=== PATIENT | female | born 1975 | race Caucasian/White ===

== ENCOUNTER 2024-02-19 11:23 | Outpatient (AMB) | payer OTHER, SELFPAY ==
--- NOTE | 2024-02-19 11:46 | MHC.PC.OV ---
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 Intake Note: New patient visit Allergies metformin Allergy (Unknown, Verified 02/19/24 11:47) Hives Medication List - Last Reconciled 02/19/24 by Elba Reynoso PA-C levothyroxine 100 mcg PO DAILY norethindrone-e.estradiol-iron 1 mg-20 mcg (21)/75 mg (7) (05/18 (28)) 1 tab PO DAILY Tobacco use date assessed: 02/19/24 Dental Screening Dental Screen Date: 02/19/24 Did you have a dental visit in the last 12 months?: Yes Did you have a dental problem in the last 6 months where you did not have access to dental care?: No Was dental information given to patient?: Patient has dentist HPI 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 General: She has tried weight watchers, the [employer], [place], and atkins. She tried metformin (hives), Contrave (racing heart). She states that she went through an online prescriber from [employer]. She was able to lose 35 lbs and then gained back weight and then some . She has had a pharmacist helper in the past and found it somewhat helpful but knows what to do but states that her appetite is just always present. She does think it would be helpful to maybe see someone again in, with a better meal plan for her and her daughter. Metformin causes hives Endo: On levothyroxine 100 mcg. Last TSH was WNL. She states her last A1c was checked a couple years ago but denies any polyuria or polydipsia Psych: I did start on trazodone for insomnia couple years ago. It is effective when she uses as needed. Colonoscopy: Never had wound Pap: Up-to-date Mammo: Up-to-date, scheduled next week. [facility] Medical History (Updated 02/19/24 @ 12:56 by Elba Reynoso PA-C) Prediabetes Severe obesity Increased BMI Hypothyroid Asthma Anxiety disorder Allergic rhinitis Surgical History (Updated 02/19/24 @ 11:59 by Priya Robertson CMA) H/O wisdom tooth extraction Family History (Updated 02/19/24 @ 12:01 by Priya Robertson CMA) Father Alcoholism CAD (coronary artery disease) Congestive heart failure (CHF) Heart attack HTN (hypertension) Mother HTN (hypertension) Other Substance use Social History Housing: House Patient Tobacco Use Status: Former Tobacco user Years Smoked: 4 college years e-Cigarette/Vaping Use: Never Used Second Hand Smoke Exposure: No service: No Current occupational status: employed 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 1. Little interest or pleasure in doing things: not at all 2. Feeling down, depressed, or hopeless: not at all 3. Trouble falling or staying asleep, or sleeping too much: several days 4. Feeling tired or having little energy: several days 5. Poor appetite or overeating: several days 6. Feeling bad about yourself - or that you are a failure or have let yourself or your family down: not at all 7. Trouble concentrating on things, such as reading the newspaper or watching television: not at all 8. Moving or speaking so slowly that other people could have noticed. Or the opposite - being so fidgety or restless that you have been moving around a lot more than usual: not at all 9. Thoughts that you would be better off or of hurting yourself in some way: not at all Total score: 3 Source: Developed by Drs. Alvino Salter, Arelis Mckeon, Cruz Rader and colleagues, with an educational cordell from [employer]. Thrive Questionnaire Date Thrive assessed: 02/16/24 I am a: Patient What is your living situation today?: I have a steady place to live Within the past 12 months, did the food you bought not last and you didn't have the money to get more?: Never true Within the past 12 months, did you worry whether your food would run out before you got money to buy more?: Never true Do you have trouble paying for medicines?: No Do you have trouble getting transportation to medical appointments?: No Do you have trouble paying your heating and electricity bill?: No Do you have trouble taking care of your child, family member or friend?: No Do you have trouble with day-to-day activities such as bathing, preparing meals, shopping, managing finances, etc.?: No Are you currently unemployed and looking for a job?: No Are you interested in more education?: No Please select the resources that you would like help with: None Currently or been in a relationship where the following occur: No concerns reported THRIVE Score: 0 AUDIT C Alcohol Use Questionnaire (AUDIT-C) 1. How often do you have a drink containing alcohol?: 2-4 times a month 2. How many drinks containing alcohol do you have on a typical day when you are drinking?: 1 or 2 3. How often do you have six or more drinks on one occasion?: Never Total Score: 2 Score Reviewed/Action Taken: Yes ABIGAIL-7 AMB Questionnaire ABIGAIL-7 Feeling nervous, anxious, or on edge: 1 = Several days Not being able to stop or control worryin = Not at all Worrying too much about different things: 0 = Not at all Trouble relaxin = Several days Being so restless that it is hard to sit still: 0 = Not at all Feeling afraid as if something awful might happen: 0 = Not at all Source: Developed by Drs. Alvino Salter, Arelis Mckeon, Cruz Rader and colleagues, with an educational cordell from [employer]. ABIGAIL-7 Assessment Billing ABIGAIL-7 Assessment Tool: ABIGAIL-7 Assessment 27888 ACT Questionnaire In the past 4 weeks, how much of the time did your asthma keep you from getting as much done at work, school or at home?: Some of the time During the past 4 weeks, how often have you had shortness of breath?: 1-2 times a week During the past 4 weeks, how often did your asthma symptoms wake you up at night or earlier than usual in the morning?: Once or twice per week During the past 4 weeks, how often have you had to use your rescue inhaler or nebulizer medication?: 1-2 times a week How would you rate your asthma control during the past 4 weeks?: Well controlled Score: 17 Physical exam (Primary Care) Vital Signs: Last Vital Signs Temp 98.7 F 02/19/24 11:51 Pulse 95 02/19/24 11:51 Resp 16 02/19/24 11:51 BP 126/76 02/19/24 11:51 Pulse Ox 99 02/19/24 11:51 Oxygen Delivery Method Room Air 02/19/24 11:51 BMI result Body Mass Index 50.1 Tobacco/Smoking Status: Tobacco use Status Tobacco use date assessed 02/19/24 02/19/24 11:55 Patient Tobacco Use Status Former Tobacco user 02/19/24 11:55 e-Cigarette/Vaping Use Never Used 02/19/24 11:55 PHQ-9: PHQ-9 Score PHQ-9: Total score 3 02/19/24 11:55 Thrive Assessment: Date of Thrive Assessment Date Thrive assessed 02/16/24 02/19/24 11:55 Currently or been in a relationship where the following occur: No concerns reported Const Orientation/consciousness: patient oriented x3 HENMT Ears: hearing grossly normal bilaterally Neck Thyroid: Thyroid normal Lymphatic: no lymphadenopathy noted Resp Auscultation: clear to auscultation bilaterally Cardio Rate: regular rate Rhythm: regular rhythm Heart sounds: S1 normal heart sound present and S2 normal heart sound present GI Inspection: Yes normal to inspection Palpation (GI): Soft to palpation and Other GI palpation findings present (nontender, no cva tenderness) Auscultation: normoactive bowel sounds Rectal Exam - Female: deferred Skin General skin exam: no rashes or lesions noted Neuro General: patient oriented x3, gait normal and no focal motor deficits Coding Level of Care Code Est Pt Level 4 (34242) Complex EM visit Add On G2211 Diagnoses 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 Currently on levothyroxine 100 mcg. Feels better when her TSH is closer to 2. (2) Severe obesity: Code(s): E66.01 - Morbid (severe) obesity due to excess calories Category: Medical Plan: We will try Wegovy. We discussed risks and benefits and adverse effects of this medication including nausea, vomiting, increased risk of pancreatitis and thyroid malignancy. Patient is aware of the side effects. She is going to work on avoiding processed food and increase exercise. I have referred her to pharmacist helper. (3) Prediabetes: Code(s): R73.03 - Prediabetes Category: Medical Plan: A1c ordered today. We will follow up pending test results. Orders: Orders Comprehensive [place]. Panel Fast Today E03.9 - Hypothyroidism, unspecified, E66.01 - Morbid (severe) obesity due to excess calories, R73.03 - Prediabetes Complete Blood Count Auto Diff Today E03.9 - Hypothyroidism, unspecified, E66.01 - Morbid (severe) obesity due to excess calories, R73.03 - Prediabetes Hemoglobin A1c Today E03.9 - Hypothyroidism, unspecified, E66.01 - Morbid (severe) obesity due to excess calories, R73.03 - Prediabetes TSH reflex Free T4 Today E03.9 - Hypothyroidism, unspecified, E66.01 - Morbid (severe) obesity due to excess calories, R73.03 - Prediabetes Vitamin B12 and Folate Today E03.9 - Hypothyroidism, unspecified, E66.01 - Morbid (severe) obesity due to excess calories, R73.03 - Prediabetes Magnesium Today E03.9 - Hypothyroidism, unspecified, E66.01 - Morbid (severe) obesity due to excess calories, R73.03 - Prediabetes Lipid Panel Today E03.9 - Hypothyroidism, unspecified, E66.01 - Morbid (severe) obesity due to excess calories, R73.03 - Prediabetes Referrals Cash Specialist Nutrition Referral E66.01 - Morbid (severe) obesity due to excess calories, R73.03 - Prediabetes Open Access Screening Colonoscopy Referral Z12.11 - Encounter for screening for malignant neoplasm of colon Medications: New semaglutide (weight loss) (Wegovy) administer weeks 1 through 4 of therapy 0.25 mg (0.5 mL) subcut QWEEK 2 mL 1RF trazodone 50 mg PO BEDTIME PRN 90 tabs 3RF sleep albuterol sulfate 90 mcg/actuation 2 puffs inhalation Q6H PRN 8.5 grams 0RF shortness of breath or wheezing
[2024-02-19 11:51] VITALS: BP 126/76; PULSE 95; RESP 16; TEMP 37.1; O2SAT 99; BMI 50.1
== END 2024-02-19 12:44 | disposition home or self-care (01) ==
PROVIDERS: PCP Physician Assistant; Visit Provider Physician Assistant
DX: E06.3 Autoimmune thyroiditis (principal); E66.01 Morbid (severe) obesity due to excess calories; Z68.43 Body mass index [BMI] 50.0-59.9, adult; R73.03 Prediabetes

== ENCOUNTER → 2024-02-19 11:23 | Outpatient (BNVA) | payer OTHER, SELFPAY | PROVIDERS: PCP Physician Assistant; Visit Provider Physician Assistant | DX: E03.9 Hypothyroidism, unspecified (principal); E66.01 Morbid (severe) obesity due to excess calories; R73.03 Prediabetes; Z79.899 Other long term (current) drug therapy | CPT/HCPCS: 96127; 96160 ==

== ENCOUNTER 2024-02-20 06:46 | Outpatient (REF) | payer OTHER, SELFPAY ==
[2024-02-20 07:02] LABS: MANUAL DIFF FLAG NO
[2024-02-20 07:52] LABS: Basophils Percent Auto 0.4 % (0-2); Eosinophils Absolute Auto 0.2 X10*3/uL (0.0-0.4); Hematocrit 40.9 % (37.0-47.0); Hemoglobin 13.1 g/dl (12.0-16.0); Imm Gran Abs Auto 0.09 X10*3/uL (0.00-0.03); Imm Gran Pct Auto 0.9 % (0.0-0.4); Lymphocytes Absolute Auto 2.8 X10*3/uL (1.2-4.9); Lymphocytes Percent Auto 28.4 % (20-40); Mean Corpuscular Hemoglobin 27.5 pg (27.0-33.0); Mean Corpuscular Volume 85.7 fL (80.0-98.0); Mean Platelet Volume 9.4 fL (9.4-12.3); Monocytes Absolute Auto 0.5 X10*3/uL (0.1-1.2); Monocytes Percent Auto 5.4 % (2-11); Neutrophils Absolute Auto 6.2 x10*3/uL (2.0-8.3); Neutrophils Percent Auto 62.9 % (45-73); Platelet Count 226 X10*3/uL (160-400); Red Blood Count 4.77 X10*6/uL (4.20-5.50); Red Cell Distribution Width 13.9 % (11.0-16.0); White Blood Count 9.8 X10*3/uL (4.8-10.8)
[2024-02-20 08:04] LABS: Estimated Average Glucose 120 mg/dL; Hemoglobin A1C 134.8526 umol/L; Hemoglobin A1c % 5.8 % (<6.0); Total Hemoglobin (HGBA1C) 3397.4304 umol/L
[2024-02-20 08:24] LABS: Alanine Aminotransferase 46 U/L (0-31); Albumin Level 3.9 g/dL (3.5-5.0); Alkaline Phosphatase 103 U/L (39-117); Anion Gap 13 (12-20); Aspartate Amino Transferase 31 U/L (5-31); Bilirubin Total 0.4 mg/dL (0.0-1.0); Blood Urea Nitrogen 12 mg/dL (9-16); Calcium 9.3 mg/dL (8.4-10.2); Carbon Dioxide 25 mmol/L (22-29); Chloride 108 mmol/L (96-108); Cholesterol 178 mg/dL (<200); Estimated Glomerular Filt Rate > 60; Glucose Fasting 118 mg/dL (60-99); HDL Cholesterol 62 mg/dL (>40); LDL Cholesterol Calculated 97 mg/dL (<100); Magnesium 2.2 mg/dL (1.6-2.6); Potassium 4.5 mmol/L (3.3-5.1); Sodium 141 mmol/L (135-145); Total Protein 6.8 g/dL (6.5-8.0); Triglycerides 95 mg/dL (<150)
[2024-02-20 08:38] LABS: TSH reflex Free T4 5.95 uIU/mL (0.32-4.0)
[2024-02-20 08:52] LABS: Folate 10.9 ng/mL (> or = 4.0); Vitamin B12 462 pg/mL (200-900)
== END 2024-02-20 06:47 | disposition home or self-care (01) ==
LOC: HO.LAB 06:46
PROVIDERS: PCP Internal Medicine; Visit Provider Physician Assistant
DX: R73.03 Prediabetes (principal); E66.01 Morbid (severe) obesity due to excess calories; E03.9 Hypothyroidism, unspecified
CPT/HCPCS: 36415; 80053; 80061; 82607; 82746; 83036; 83735; 84439; 84443; 85025

== ENCOUNTER 2024-04-02 08:04 | Outpatient (AMB) | payer OTHER, SELFPAY ==
--- NOTE | 2024-04-02 08:28 | A.OFFPC_ITS ---
Vital Signs 04/02/24 08:29 Height 5 ft 3.78 in Weight 278 lb BMI 48.0 BP 126/80 Blood Pressure Location Lt brachial Position Sitting Pulse 110 H Pulse Source Pulse Oximeter Pulse Oximetry (%) 99 Oxygen Delivery Method Room Air Intake Visit Reasons: medicatin weight follow up Intake Note: Medication follow up Negative Cutter Required: No Allergies metformin Allergy (Unknown, Verified 04/02/24 08:28) Hives Medication List - Last Reconciled 04/02/24 by Elba Reynoso PA-C albuterol sulfate 90 mcg/actuation 2 puffs inhalation Q6H PRN levothyroxine 112 mcg PO DAILY norethindrone-e.estradiol-iron 1 mg-20 mcg ()/75 mg (7) (05/18 (28)) 1 tab PO DAILY trazodone 50 mg PO BEDTIME PRN Tobacco use date assessed: 02/19/24 Dental Screening Dental Screen Date: 02/19/24 HPI medicatin weight follow up HPI Details Patient is a 48-year-old female with a significant past medical history of prediabetes, dyslipidemia, PCOS, hypothyroidism, insomnia, and obesity pre senting today for a follow up. General: She has tried weight watchers, the [employer], [employer], and atkins. She tried metformin (hives), Contrave (racing heart). She states that she went through an online prescriber from [employer]. She was able to lose 35 lbs and then gained back weight and then some . She has had a silver lap machine tender in the past and found it somewhat helpful but knows what to do but states that her appetite is just always present. She is currently following with [employer] as her insurance recommended. She is down 12 lbs. She wanted to try wegovy but not covered until she trialed this. Metformin causes hives Endo: On levothyroxine 112 mcg. Last TSH was elevated. Due to recheck. Psych: I did start on trazodone for insomnia couple years ago. It is effective when she uses as needed. Colonoscopy: was referred- has not heard from dept. Pap: Up-to-date Mammo: Up-to-date [facility] Medical History (Updated 02/19/24 @ 12:56 by Elba Reynoso PA-C) Prediabetes Severe obesity Increased BMI Hypothyroid Asthma Anxiety disorder Allergic rhinitis Surgical History H/O wisdom tooth extraction Family History Father Alcoholism CAD (coronary artery disease) Congestive heart failure (CHF) Heart attack HTN (hypertension) Mother HTN (hypertension) Other Substance use Social History Housing: House Patient Tobacco Use Status: Former Tobacco user Years Smoked: 4 college years e-Cigarette/Vaping Use: Never Used Second Hand Smoke Exposure: No service: No Current occupational status: employed 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 Current occupational exposures/hazards: No Cognitive needs: No Hearing needs: No Vision needs: No Questionnaire Thrive Questionnaire Date Thrive assessed: 02/16/24 I am a: Patient What is your living situation today?: I have a steady place to live Within the past 12 months, did the food you bought not last and you didn't have the money to get more?: Never true Within the past 12 months, did you worry whether your food would run out before you got money to buy more?: Never true Do you have trouble paying for medicines?: No Do you have trouble getting transportation to medical appointments?: No Do you have trouble paying your heating and electricity bill?: No Do you have trouble taking care of your child, family member or friend?: No Do you have trouble with day-to-day activities such as bathing, preparing meals, shopping, managing finances, etc.?: No Are you currently unemployed and looking for a job?: No Are you interested in more education?: No Please select the resources that you would like help with: None Currently or been in a relationship where the following occur: No concerns reported THRIVE Score: 0 ABIGAIL-7 AMB Questionnaire ABIGAIL-7 Becoming easily annoyed or irritable: 0 = Not at all Source: Developed by Drs. Alvino Salter, Arelis Mckeon, Cruz Rader and colleagues, with an educational cordell from [employer]. Physical exam (Primary Care) Vital Signs: Last Vital Signs Pulse 110 H 04/02/24 08:29 BP 126/80 04/02/24 08:29 Pulse Ox 99 04/02/24 08:29 Oxygen Delivery Method Room Air 04/02/24 08:29 BMI result Body Mass Index 48.0 Tobacco/Smoking Status: Tobacco use Status Tobacco use date assessed 02/19/24 04/02/24 08:31 Patient Tobacco Use Status Former Tobacco user 04/02/24 08:31 e-Cigarette/Vaping Use Never Used 04/02/24 08:31 Thrive Assessment: Date of Thrive Assessment Date Thrive assessed 02/16/24 04/02/24 08:31 Currently or been in a relationship where the following occur: No concerns reported Const Orientation/consciousness: patient oriented x3 HENMT Ears: hearing grossly normal bilaterally Neck Thyroid: Thyroid normal Lymphatic: no lymphadenopathy noted Resp Auscultation: clear to auscultation bilaterally Cardio Rate: regular rate Rhythm: regular rhythm Heart sounds: S1 normal heart sound present and S2 normal heart sound present GI Inspection: Yes normal to inspection Palpation (GI): Soft to palpation and Other GI palpation findings present (nontender, no cva tenderness) Auscultation: normoactive bowel sounds Rectal Exam - Female: deferred Skin General skin exam: no rashes or lesions noted Neuro General: patient oriented x3, gait normal and no focal motor deficits Coding Level of Care Code Est Pt Level 4 (97730) Complex EM visit Add On G2211 Diagnoses 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 We will follow up pending test results (2) Prediabetes: Code(s): R73.03 - Prediabetes Category: Medical Plan: We will check an A1c given her recent weight loss. She is following a low carb diet and monitoring her blood sugars closely. (3) Severe obesity: Code(s): E66.01 - Morbid (severe) obesity due to excess calories Category: Medical Plan: Congratulated her on her weight loss. She will let me know if there is any issues with it. Orders: Orders Comprehensive [place]. Panel Fast Today E06.3 - Autoimmune thyroiditis, E66.01 - Morbid (severe) obesity due to excess calories, R73.03 - Prediabetes Hemoglobin A1c Today E06.3 - Autoimmune thyroiditis, E66.01 - Morbid (severe) obesity due to excess calories, R73.03 - Prediabetes
[2024-04-02 08:29] VITALS: BP 126/80; PULSE 110; O2SAT 99; BMI 48.0
== END 2024-04-02 09:03 | disposition home or self-care (01) ==
PROVIDERS: PCP Physician Assistant; Visit Provider Physician Assistant
DX: E06.3 Autoimmune thyroiditis (principal); R73.03 Prediabetes; E66.01 Morbid (severe) obesity due to excess calories; Z68.42 Body mass index [BMI] 45.0-49.9, adult

== ENCOUNTER 2024-04-02 09:14 | Outpatient (REF) | payer OTHER, SELFPAY ==
[2024-04-02 11:46] LABS: Estimated Average Glucose 120 mg/dL; Hemoglobin A1C 134.7516 umol/L; Hemoglobin A1c % 5.8 % (<6.0); Total Hemoglobin (HGBA1C) 3420.5028 umol/L
[2024-04-02 11:56] LABS: Alanine Aminotransferase 22 U/L (0-31); Albumin Level 4.2 g/dL (3.5-5.0); Alkaline Phosphatase 67 U/L (39-117); Anion Gap 14 (12-20); Aspartate Amino Transferase 23 U/L (5-31); Bilirubin Total 0.4 mg/dL (0.0-1.0); Blood Urea Nitrogen 17 mg/dL (9-16); Calcium 9.6 mg/dL (8.4-10.2); Carbon Dioxide 24 mmol/L (22-29); Chloride 106 mmol/L (96-108); Estimated Glomerular Filt Rate > 60; Glucose Fasting 100 mg/dL (60-99); Potassium 4.4 mmol/L (3.3-5.1); Sodium 140 mmol/L (135-145); Total Protein 7.2 g/dL (6.5-8.0)
== END 2024-04-02 09:15 | disposition home or self-care (01) ==
LOC: HO.WFDLDS 09:14
PROVIDERS: Visit Provider Physician Assistant
DX: E06.3 Autoimmune thyroiditis (principal); R73.03 Prediabetes; E66.01 Morbid (severe) obesity due to excess calories
CPT/HCPCS: 36415; 80053; 83036

== ENCOUNTER 2024-05-21 11:28 | Outpatient (REF) | payer OTHER, SELFPAY ==
[2024-05-21 13:03] LABS: TSH reflex Free T4 2.51 uIU/mL (0.32-4.0)
== END 2024-05-21 11:29 | disposition home or self-care (01) ==
LOC: HO.LAB 11:28
PROVIDERS: PCP Physician Assistant; Visit Provider Physician Assistant
DX: E06.3 Autoimmune thyroiditis (principal)
CPT/HCPCS: 36415; 84443

== ENCOUNTER 2024-10-07 08:16 | Outpatient (AMB) | payer OTHER, SELFPAY ==
--- NOTE | 2024-10-07 08:20 | MHC.PC.OV ---
Vital Signs 10/07/24 08:23 Height 5 ft 3.78 in Weight 234 lb 4 oz BMI 40.5 BP 120/72 Blood Pressure Location Lt brachial Position Sitting Respiration 14 Pulse 86 Pulse Source Pulse Oximeter Temp 98.9 F Temp Source Oral Pulse Oximetry (%) 99 Oxygen Delivery Method Room Air Intake Visit Reasons: thyroid, weight Intake Note: Follow up Milk Condenser Required: No Allergies metformin Allergy (Unknown, Verified 10/07/24 08:22) Hives Medication List - Last Reconciled 10/07/24 by Elba Reynoso PA-C albuterol sulfate 90 mcg/actuation 2 puffs inhalation Q6H PRN levothyroxine 112 mcg PO DAILY norethindrone-e.estradiol-iron 1 mg-20 mcg ()/75 mg (7) (05/18 (28)) 1 tab PO DAILY trazodone 50 mg PO BEDTIME PRN Tobacco use date assessed: 10/07/24 Dental Screening Dental Screen Date: 02/19/24 Did you have a dental visit in the last 12 months?: Yes Did you have a dental problem in the last 6 months where you did not have access to dental care?: No Was dental information given to patient?: Patient has dentist HPI thyroid, weight HPI Details Patient is a 49-year-old female with a significant past medical history of prediabetes, dyslipidemia, PCOS, hypothyroidism, insomnia, and obesity presenting today for a follow up. General: She has tried weight watchers, the [employer], [employer] [place], and atkins. She tried metformin (hives), Contrave (racing heart). She states that she went through an online prescriber from [employer]. She was able to lose 35 lbs and then gained back weight and then some . She has had a aircraft cabin cleaner in the past and found it somewhat helpful but knows what to do but states that her appetite is just always present. She is currently following with [facility] as her insurance recommended. She is down 60 lbs. She wanted to try wegovy but not covered until she trialed this. Metformin causes hives Endo: On levothyroxine 112 mcg. Last TSH was WNL. Psych: I did start on trazodone for insomnia couple years ago. It is effective when she uses as needed. Derm: follows with [facility] Colonoscopy: was referred- has not heard from dept. Pap: Up-to-date, Dr. Romano Mammo: Up-to-date, Jan 2024 at [facility] Medical History (Updated 02/19/24 @ 12:56 by Elba Reynoso PA-C) Prediabetes Severe obesity Increased BMI Hypothyroid Asthma Anxiety disorder Allergic rhinitis Surgical History H/O wisdom tooth extraction Family History Father Alcoholism CAD (coronary artery disease) Congestive heart failure (CHF) Heart attack HTN (hypertension) Mother HTN (hypertension) Other Substance use Social History Housing: House Patient Tobacco Use Status: Former Tobacco user Years Smoked: 4 college years e-Cigarette/Vaping Use: Never Used Second Hand Smoke Exposure: No service: No Current occupational status: employed 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 1. Little interest or pleasure in doing things: not at all 2. Feeling down, depressed, or hopeless: not at all 3. Trouble falling or staying asleep, or sleeping too much: not at all 4. Feeling tired or having little energy: not at all 5. Poor appetite or overeating: not at all 6. Feeling bad about yourself - or that you are a failure or have let yourself or your family down: not at all 7. Trouble concentrating on things, such as reading the newspaper or watching television: not at all 8. Moving or speaking so slowly that other people could have noticed. Or the opposite - being so fidgety or restless that you have been moving around a lot more than usual: not at all 9. Thoughts that you would be better off or of hurting yourself in some way: not at all Total score: 0 Depression Screening Interpretation: Negative Depression Screening Done: Yes 70473 - PHQ-9 Billing: Yes Source: Developed by Drs. Alvino Salter, Arelis Mckeon, Cruz Rader and colleagues, with an educational cordell from [employer]. Thrive Questionnaire Date Thrive assessed: 09/30/24 I am a: Patient What is your living situation today?: I have a steady place to live Within the past 12 months, did the food you bought not last and you didn't have the money to get more?: Never true Within the past 12 months, did you worry whether your food would run out before you got money to buy more?: Never true Do you have trouble paying for medicines?: No Do you have trouble getting transportation to medical appointments?: No Do you have trouble paying your heating and electricity bill?: No Do you have trouble taking care of your child, family member or friend?: No Do you have trouble with day-to-day activities such as bathing, preparing meals, shopping, managing finances, etc.?: No Are you currently unemployed and looking for a job?: No Are you interested in more education?: No Please select the resources that you would like help with: None Currently or been in a relationship where the following occur: No concerns reported THRIVE Score: 0 AUDIT C Alcohol Use Questionnaire (AUDIT-C) 1. How often do you have a drink containing alcohol?: 2-4 times a month 2. How many drinks containing alcohol do you have on a typical day when you are drinking?: 1 or 2 3. How often do you have six or more drinks on one occasion?: Never Total Score: 2 ABIGAIL-7 AMB Questionnaire ABIGAIL-7 Date ABIGAIL - 7 assessed: 10/07/24 Feeling nervous, anxious, or on edge: 0 = Not at all Not being able to stop or control worryin = Not at all Worrying too much about different things: 0 = Not at all Trouble relaxin = Not at all Being so restless that it is hard to sit still: 0 = Not at all Becoming easily annoyed or irritable: 0 = Not at all Feeling afraid as if something awful might happen: 0 = Not at all Total ABIGAIL-7 score (0-4 normal; 5-9 mild; 10-14 moderate; 15-21 severe): 0 Source: Developed by Drs. Alvino Salter, Arelis Mckeon, Cruz Rader and colleagues, with an educational cordell from [employer]. ABIGAIL-7 Assessment Billing ABIGAIL-7 Assessment Tool: ABIGAIL-7 Assessment 82111 Physical exam (Primary Care) Tobacco/Smoking Status: Tobacco use Status Tobacco use date assessed 02/19/24 10/07/24 08:21 Patient Tobacco Use Status Former Tobacco user 10/07/24 08:21 e-Cigarette/Vaping Use Never Used 10/07/24 08:21 PHQ-9: PHQ-9 Score PHQ-9: Total score 0 10/07/24 08:21 Depression Screening Interpretation: Negative Thrive Assessment: Date of Thrive Assessment Date Thrive assessed 09/30/24 10/07/24 08:21 Currently or been in a relationship where the following occur: No concerns reported Const Orientation/consciousness: patient oriented x3 HENMT Ears: hearing grossly normal bilaterally Neck Thyroid: Thyroid normal Lymphatic: no lymphadenopathy noted Resp Auscultation: clear to auscultation bilaterally Cardio Rate: regular rate Rhythm: regular rhythm Heart sounds: S1 normal heart sound present and S2 normal heart sound present GI Inspection: Yes normal to inspection Palpation (GI): Soft to palpation and Other GI palpation findings present (nontender, no cva tenderness) Auscultation: normoactive bowel sounds Rectal Exam - Female: deferred Skin General skin exam: no rashes or lesions noted Neuro General: patient oriented x3, gait normal and no focal motor deficits Results Reviewed Results Reviewed: Laboratory Tests 04/02/24 05/21/24 09:14 11:48 Sodium 140 Potassium 4.4 Chloride 106 Carbon Dioxide 24 Anion Gap 14 BUN 17 H Creatinine 0.87 Estimated GFR > 60 Estimat Average Glucose 120 Hemoglobin A1c % 5.8 Calcium 9.6 TSH 2.51 Coding Level of Care Code Est Pt Level 4 (43773) Complex EM visit Add On G2211 Diagnoses Prediabetes R73.03 Severe obesity E66.01 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 will recheck (2) Severe obesity: Code(s): E66.01 - Morbid (severe) obesity due to excess calories Category: Medical Plan: she is down 60 lbs and doing great. will follow up in 6 months. continue current plan with exercise and diet. (3) Hypothyroid: Code(s): E03.9 - Hypothyroidism, unspecified Category: Medical Qualifiers: Hypothyroidism type: due to Cary's thyroiditis Qualified Code(s): E06.3 - Autoimmune thyroiditis Plan: We will check TSH today Orders: Orders Complete Blood Count Auto Diff Today E06.3 - Autoimmune thyroiditis, E66.01 - Morbid (severe) obesity due to excess calories, R73.03 - Prediabetes Comprehensive [place]. Panel Fast Today E06.3 - Autoimmune thyroiditis, E66.01 - Morbid (severe) obesity due to excess calories, R73.03 - Prediabetes TSH reflex Free T4 Today E06.3 - Autoimmune thyroiditis, E66.01 - Morbid (severe) obesity due to excess calories, R73.03 - Prediabetes Microalbumin, Random (w Creat) Today E06.3 - Autoimmune thyroiditis, E66.01 - Morbid (severe) obesity due to excess calories, R73.03 - Prediabetes Vitamin B12 and Folate Today E06.3 - Autoimmune thyroiditis, R73.03 - Prediabetes Hemoglobin A1c Today E06.3 - Autoimmune thyroiditis, E66.01 - Morbid (severe) obesity due to excess calories, R73.01 - Impaired fasting glucose, R73.03 - Prediabetes Referrals Gastroenterology Referral Z12.11 - Encounter for screening for malignant neoplasm of colon
[2024-10-07 08:23] VITALS: BP 120/72; PULSE 86; RESP 14; TEMP 37.2; O2SAT 99; BMI 40.5
--- OUTSIDE RECORDS SUMMARY | 2024-10-07 08:24 | XMS_ITS | Continuity of Care Document ---
Author Organization [facility] Address [address] [place] [address] Insurance Providers Payer Plan Claims Address Claims Phone Policy Number Group Number Relation Employer Guarantor Name Guarantor Guarantor Address Guarantor Phone [facility] tel:[phone] [id number] 1975 [address] [place] [address] [facility] [address] [address] tel: [phone] 1975 [address] [place] [address] [facility] tel:[phone] [id number] 1975 [address] [place] [address] Problems Unknown Problems Results Test Result Date/Time Value / Unit Interp. Refere [facility] Range Lipid Panel[[id number]]?Collected: 07/30/2024 02:22 PM?Specimen Received: 07/30/2024 05:00 AM?Source: [facility] Cholesterol, Total [[id number]] 07/31/2024 04:09 AM 196 mg/dL 100-199 mg/dL Triglycerides [[id number]] 07/31/2024 04:14 AM 117 mg/dL 0-149 mg/dL HDL Cholesterol [[id number]] 07/31/2024 04:14 AM 54 mg/dL >39 mg/dL VLDL Cholesterol [facility] [[id number]] 07/31/2024 04:14 AM 21 mg/dL 5-40 mg/dL LDL Chol Calc ([facility]) [[id number]] 07/31/2024 04:14 AM 121 mg/dL H 0-99 mg/dL Hemoglobin A1c[[id number]]?Collected: 07/30/2024 02:22 PM?Specimen Received: 07/30/2024 05:00 AM?Source: [facility] Hemoglobin A1c [[id number]] 07/31/2024 02:48 AM 5.8 % H 4.8-5.6 % . Prediabetes: 5.7 - 6.4 Karma betes: >6.4 Glycemic control for adults with diabetes: 7.0 Allergies, adverse reactions, alerts No known allergies and adverse reactions Medications No administered medications reported Vital Signs No vital signs reported Social History No smoking Hx information available
== END 2024-10-07 08:40 | disposition home or self-care (01) ==
LOC: HO.HMCFM 08:17
PROVIDERS: PCP Physician Assistant; Visit Provider Physician Assistant
DX: R73.03 Prediabetes (principal); E66.01 Morbid (severe) obesity due to excess calories; Z68.41 Body mass index [BMI] 40.0-44.9, adult; E06.3 Autoimmune thyroiditis

== ENCOUNTER → 2024-10-07 08:16 | Outpatient (BNVA) | payer OTHER, SELFPAY | PROVIDERS: PCP Physician Assistant; Visit Provider Physician Assistant | DX: R73.03 Prediabetes (principal); E78.5 Hyperlipidemia, unspecified; E28.2 Polycystic ovarian syndrome; E03.9 Hypothyroidism, unspecified; G47.00 Insomnia, unspecified; E66.9 Obesity, unspecified; Z68.41 Body mass index [BMI] 40.0-44.9, adult | CPT/HCPCS: 96127 ==

== ENCOUNTER 2024-10-07 08:49 | Outpatient (REF) | payer OTHER, SELFPAY ==
[2024-10-07 11:26] LABS: MANUAL DIFF FLAG NO
[2024-10-07 11:39] LABS: Basophils Percent Auto 0.3 % (0-2); Eosinophils Absolute Auto 0.1 X10*3/uL (0.0-0.4); Eosinophils Percent Auto 1.2 % (0-4); Hemoglobin 12.6 g/dl (12.0-16.0); Imm Gran Abs Auto 0.04 X10*3/uL (0.00-0.03); Imm Gran Pct Auto 0.5 % (0.0-0.4); Lymphocytes Percent Auto 23.2 % (20-40); Mean Corpuscular HGB Conc 32.3 g/dl (31.0-35.0); Mean Corpuscular Hemoglobin 27.9 pg (27.0-33.0); Mean Corpuscular Volume 86.3 fL (80.0-98.0); Mean Platelet Volume 10.2 fL (9.4-12.3); Monocytes Absolute Auto 0.4 X10*3/uL (0.1-1.2); Monocytes Percent Auto 4.4 % (2-11); Neutrophils Percent Auto 70.4 % (45-73); Platelet Count 245 X10*3/uL (160-400); Red Blood Count 4.52 X10*6/uL (4.20-5.50); Red Cell Distribution Width 14.2 % (11.0-16.0); White Blood Count 8.6 X10*3/uL (4.8-10.8)
[2024-10-07 11:47] LABS: Estimated Average Glucose 108 mg/dL; Hemoglobin A1c % 5.4 % (<6.0)
[2024-10-07 11:57] LABS: Alanine Aminotransferase 12 U/L (0-31); Albumin Level 4.3 g/dL (3.5-5.0); Alkaline Phosphatase 85 U/L (39-117); Anion Gap 11 (12-20); Aspartate Amino Transferase 19 U/L (5-31); Bilirubin Total 0.4 mg/dL (0.0-1.0); Blood Urea Nitrogen 15 mg/dL (9-16); Calcium 9.4 mg/dL (8.4-10.2); Carbon Dioxide 26 mmol/L (22-29); Chloride 106 mmol/L (96-108); Estimated Glomerular Filt Rate > 60; Glucose Fasting 97 mg/dL (60-99); Potassium 4.1 mmol/L (3.3-5.1); Sodium 139 mmol/L (135-145)
[2024-10-07 12:14] LABS: Microalbumin Urine < 5.0 mg/L
[2024-10-07 12:15] LABS: TSH reflex Free T4 1.43 uIU/mL (0.32-4.0)
[2024-10-07 12:20] LABS: Folate 6.1 ng/mL (> or = 4.0); Vitamin B12 392 pg/mL (200-900)
== END 2024-10-07 08:50 | disposition home or self-care (01) ==
LOC: HO.WFDLDS 08:49
PROVIDERS: Visit Provider Physician Assistant
DX: E06.3 Autoimmune thyroiditis (principal); E66.01 Morbid (severe) obesity due to excess calories; R73.03 Prediabetes; R73.01 Impaired fasting glucose
CPT/HCPCS: 36415; 80053; 82043; 82570; 82607; 82746; 83036; 84443; 85025

== ENCOUNTER 2024-12-17 08:43 | Outpatient (AMB) | payer OTHER, SELFPAY ==
[2024-12-17 08:45] VITALS: BP 134/66; PULSE 70; O2SAT 98; BMI 40.0
--- NOTE | 2024-12-17 08:45 | MHC.OFFVIS ---
Vital Signs 12/17/24 08:45 Height 5 ft 3 in Weight 226 lb BMI 40.0 BP 134/66 Blood Pressure Location Rt brachial Position Sitting Pulse 70 Pulse Source Pulse Oximeter Pulse Oximetry (%) 98 Oxygen Delivery Method Room Air Intake Visit Reasons: [place] Screening Intake Note: Patient new consult for pre Colonoscopy screening. Patient cc: Pt denies any GI sx or concerns at this time. No FMx Charge Entry Clerk Required: No Accompanied by: Self / Same As Patient Allergies metformin Allergy (Unknown, Verified 10/07/24 08:22) Hives Medication List - Last Reconciled 12/17/24 by Alexandria Espinoza CNP albuterol sulfate 90 mcg/actuation 2 puffs inhalation Q6H PRN levothyroxine 112 mcg PO DAILY norethindrone-e.estradiol-iron 1 mg-20 mcg ()/75 mg () (05/18 ()) 1 tab PO DAILY trazodone 50 mg PO BEDTIME PRN HPI HPI [place] Screening: Details: Patient is a 49-year-old female with PMH of obesity, asthma, anxiety, and hypothyroidism. Referred by PCP for pre colonoscopy screening She reports having regular bowel movements, typically once daily, occasionally twice, with no episodes of constipation or diarrhea noted. There is no history of rectal bleeding, frequent or severe abdominal pain, nausea, vomiting, or unintended weight loss. Over the past nine months, she intentionally lost 60 lbs through a ketogenic diet and lifestyle modifications with the guidance of [employer]. She experiences occasional heartburn, which typically resolves on its own but sometimes requires an pojy-qev-rovncpz acid shaper operator. She also reports a history of external hemorrhoids; symptoms flare up once in a great while, often related to occasional constipation. Symptomatic management with topical agents such as Tucks has been helpful. No other systemic gastrointestinal or relevant complaints were described. Patient denies: fever/chills, n/v, appetite changes, dysphasia, unintentional wt loss, ab pain or melena/hematochezia. Social hx: -Occasional ETOH consumption, approximately once weekly while out -denies recreational drug use -former smoker, cessation 10+ years ago - family hx as below -denies personal hx of CA -tolerated anesthesia in the past without difficulty. [facility] Medical History (Updated 12/17/24 @ 09:31 by Alexandria Espinoza CNP) Hemorrhoids Colon cancer screening Prediabetes Severe obesity Increased BMI Hypothyroid Asthma Anxiety disorder Allergic rhinitis Surgical History H/O wisdom tooth extraction Family History Father Alcoholism CAD (coronary artery disease) Congestive heart failure (CHF) Heart attack HTN (hypertension) Mother HTN (hypertension) Other Substance use Social History Housing: House Patient Tobacco Use Status: Former Tobacco user Years Smoked: 4 college years e-Cigarette/Vaping Use: Never Used Second Hand Smoke Exposure: No service: No Current occupational status: employed 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 Current occupational exposures/hazards: No Cognitive needs: No Hearing needs: No Vision needs: No Review of Systems Const Reports as per HPI ENT Reports as per HPI Card Reports as per HPI Resp Reports as per HPI GI Reports as per HPI Reports as per HPI Physical Exam Vital Signs: Last Vital Signs Pulse 70 12/17/24 08:45 BP 134/66 12/17/24 08:45 Pulse Ox 98 12/17/24 08:45 Oxygen Delivery Method Room Air 12/17/24 08:45 BMI result Body Mass Index 40.0 Const General: healthy appearing, no acute distress and well developed Nutritional Appearance: obese Orientation/consciousness: patient oriented x3 HEENT Head: Yes normal to inspection, Yes normocephalic and Yes atraumatic Face and sinus: Yes normal facial exam Eyes General: appearance normal, both eyes and all related structures Neck Neck: Yes normal visual inspection Resp Effort & Inspection: normal respiratory effort, able to speak in complete sentences, no tracheal deviation and symmetric chest movement Cardio Jugular venous distension: no JVD GI Rectal Exam - Female: deferred (per pt request) Neuro General: patient oriented x3 Gait exam (Neuro): Normal gait present Psych Appearance: grossly normal Mental Status: mental status grossly normal Speech and movement: Normal speech and movement present Affect: normal affect Attitude: cooperative Thought process: Normal thought process present Thought content: Normal thought content present Insight: Good insight present (Psych) Judgement: Good judgement present (Psych) Assessment & Plan Assessment & Plan (1) Colon cancer screening: Code(s): Z12.11 - Encounter for screening for malignant neoplasm of colon Category: Medical Plan: Due for index screening colonoscopy. September 2024 labs within normal limits (no signs of anemia, normal kidney/liver function, vitamin levels, and thyroid function). Medications: -prescriptions for laxative tablets and MiraLax sent to pharmacy; instructions for Gatorade purchase and clear liquid diet given. Patient educated on scheduling process, procedure preparation, including avoiding certain foods and ensuring clear liquid intake Advised on necessity for ride post-procedure due to sedation. (2) Hemorrhoids: Code(s): K64.9 - Unspecified hemorrhoids Category: Medical Qualifiers: Hemorrhoid type: unspecified Qualified Code(s): K64.9 - Unspecified hemorrhoids Plan: Rare symptomatic hemorrhoid flares, likely linked to occasional straining during constipation. Additional Testing: None at this time. Medication Management: Continue use of zkuo-cdc-ehpsybl treatments (e.g., Tucks) during flare-ups. Lifestyle Recommendations: -Maintain regular bowel habits and avoid constipation. -Recommendations include avoiding prolonged sitting on the toilet, excessive wiping, and straining during defecation. Use ergonomic positioning when seated to minimize pressure. Follow-Up: Patient declined referral to general surgery but was informed she can request a referral from primary care if future surgical management is desired. (3) Severe obesity: Code(s): E66.01 - Morbid (severe) obesity due to excess calories Category: Medical Plan: BMI 40.0. History of obesity with significant intentional weight loss (60 lbs in 9 months) via ketogenic diet and lifestyle changes Additional Testing: recent labs WNL Medication Management: Continue current regimen Lifestyle Recommendations: -Continue current dietary/lifestyle modifications -Monitor for weight stability and nutritional adequacy Follow-Up: Routine monitoring by PCP; reinforce ongoing healthy behavior Plan Follow-up after colonoscopy as warranted or sooner if needed Time: I spent a total of 30 minutes on the date of encounter which includes: Preparing to see the patient (reviewed previous documentation, test results and medical history) Performing a medically appropriate exam and/or evaluation Ordering medications, tests, and procedures Documenting clinical information in the health record Medications: New bisacodyl (Dulcolax (bisacodyl)) Take four tablets pre colonoscopy instructions 20 mg (4 x 5 mg) PO ONCE 4 tabs 0RF 1 day polyethylene glycol 3350 (Miralax) per colonoscopy prep instructions 238 grams PO ONCE 238 grams 0RF Coding Level of Care Code New Pt New Pt Level 3 (36835) Patient Type New Diagnoses Colon cancer screening Z12.11 Hemorrhoids, unspecified hemorrhoid type K64.9 Hemorrhoid type: unspecified Severe obesity E66.01
--- OUTSIDE RECORDS SUMMARY | 2024-12-17 09:42 | XMS_ITS ---
Author Name [facility] Organization Unknown Care Team Organization Name Specialty Phone Email Start Date End Da te [facility] Termed, PROVIDER Primary Care 03/06/202211/27
--- OUTSIDE RECORDS SUMMARY | 2024-12-17 09:42 | XMS_ITS | Continuity of Care Document ---
Author Organization [facility] Address [address] [place] [address] Insurance Providers Payer Plan Claims Address Claims Phone Policy Number Group Number Relation Employer Guarantor Name Guarantor Guarantor Address Guarantor Phone [facility] tel:[phone] [id number] 1975 [address] [place] [address] [facility] [address] [address] tel: [phone] [id number] [phone] 1975 [address] [place] [address] [facility] tel:[phone] [phone] [id number] 1975 [address] [place], [place] [id number] Problems Unknown Problems Results Test Result Date/Time Value / Unit Interp. Refere [facility] Range Lipid Panel[[id number]] Collected: 07/30/2024 02:22 PM Specimen Received: 07/30/2024 05:00 AM Source: [facility] Cholesterol, Total [[id number]] 07/31/2024 04:09 AM 196 mg/dL 100-199 mg/dL Triglycerides [[id number]] 07/31/2024 04:14 AM 117 mg/dL 0-149 mg/dL HDL Cholesterol [[id number]] 07/31/2024 04:14 AM 54 mg/dL >39 mg/dL VLDL Cholesterol [place] [[id number]] 07/31/2024 04:14 AM 21 mg/dL 5-40 mg/dL LDL Chol Calc ([facility]) [[id number]] 07/31/2024 04:14 AM 121 mg/dL H 0-99 mg/dL Hemoglobin A1c[[id number]] Collected: 07/30/2024 02:22 PM Specimen Received: 07/30/2024 05:00 AM Source: [facility] Hemoglobin A1c [[id number]] 07/31/2024 02:48 AM 5.8 % H 4.8-5.6 % . Prediabetes: 5.7 - 6.4 Karma betes: >6.4 Glycemic control for adults with diabetes: 7.0 Allergies, adverse reactions, alerts No known allergies and adverse reactions Medications No administered medications reported Vital Signs No vital signs reported Social History No smoking Hx information available
--- OUTSIDE RECORDS SUMMARY | 2024-12-17 09:42 | XMS_ITS | Continuity of Care Document ---
Author Organization [facility] Address [address] [facility] [address] [place] [address] Insurance Providers Payer Plan Claims Address Claims Phone Policy Number Group Number Relation Employer Guarantor Name Guarantor Guarantor Address Guarantor Phone [facility] tel:[phone] 1975 [address] [place] [address] [facility] [address] [address] tel: [phone] 1975 [address] [place] [address] [facility] tel:[phone] [id number] 1975 [address] [place], [place] [id number] Problems Unknown Problems Results Test Result Date/Time Value / Unit Interp. Refere [facility] Range Lipid Panel[[id number]] Collected: 07/30/2024 02:22 PM Specimen Received: 07/30/2024 05:00 AM Source: [facility] Cholesterol, Total [[id number]] 07/31/2024 04:09 AM 196 mg/dL 100-199 mg/dL Triglycerides [[id number]] 07/31/2024 04:14 AM 117 mg/dL 0-149 mg/dL HDL Cholesterol [[id number]] 07/31/2024 04:14 AM 54 mg/dL >39 mg/dL VLDL Cholesterol Derrell [[id number]] 07/31/2024 04:14 AM 21 mg/dL 5-40 mg/dL LDL Chol Calc ([facility]) [[id number]] 07/31/2024 04:14 AM 121 mg/dL H 0-99 mg/dL Hemoglobin A1c[[id number]] Collected: 07/30/2024 02:22 PM Specimen Received: 07/30/2024 05:00 AM Source: [facility] Hemoglobin A1c [[id number]] 07/31/2024 02:48 AM 5.8 % H 4.8-5.6 % . Prediabetes: 5.7 - 6.4 Karma betes: >6.4 Glycemic control for adults with diabetes: 7.0 Allergies, adverse reactions, alerts No known allergies and adverse reactions Medications No administered medications reported Vital Signs No vital signs reported Social History No smoking Hx information available
== END 2024-12-17 09:17 | disposition home or self-care (01) ==
LOC: HO.HGI 08:43
PROVIDERS: PCP Physician Assistant; Visit Provider Nurse Practitioner Family
DX: Z01.818 Encounter for other preprocedural examination (principal); Z12.11 Encounter for screening for malignant neoplasm of colon; K64.9 Unspecified hemorrhoids; E66.01 Morbid (severe) obesity due to excess calories; Z68.41 Body mass index [BMI] 40.0-44.9, adult
CPT/HCPCS: 99203

== ENCOUNTER 2025-04-14 09:57 | Outpatient (AMB) | payer OTHER, SELFPAY ==
--- NOTE | 2025-04-14 10:10 | A.OFFPC_ITS ---
Vital Signs 04/14/25 10:13 Height 5 ft 3 in Weight 236 lb BMI 41.8 BP 120/74 Blood Pressure Location Rt brachial Position Sitting Respiration 16 Pulse 83 Pulse Source Pulse Oximeter Temp 98.4 F Temp Source Oral Pulse Oximetry (%) 99 Oxygen Delivery Method Room Air Intake Visit Reasons: pe Intake Note: Physical Allergies metformin Allergy (Unknown, Verified 10/07/24 08:22) Hives Tobacco use date assessed: 04/14/25 Dental Screening Dental Screen Date: 04/14/25 Did you have a dental visit in the last 12 months?: Yes Did you have a dental problem in the last 6 months where you did not have access to dental care?: No Was dental information given to patient?: Patient has dentist HPI pe HPI Details Patient is a 49-year-old female with a significant past medical history of prediabetes, dyslipidemia, PCOS, hypothyroidism, insomnia, and obesity presenting today for a physical exam. General: She is currently following with [facility] as her insurance recommended. She is down 60 lbs. Endo: On levothyroxine 112 mcg. Last TSH was WNL. Psych: Uses trazodone as needed. Derm: follows with [facility] Colonoscopy: scheduled 04/30/25 Pap: Up-to-date, Dr. Romano Mammo: Up-to-date, Jan 2025 at [facility] Medical History (Updated 12/17/24 @ 09:31 by Alexandria Espinoza CNP) Hemorrhoids Colon cancer screening Prediabetes Severe obesity Increased BMI Hypothyroid Asthma Anxiety disorder Allergic rhinitis Surgical History H/O wisdom tooth extraction Family History Father Alcoholism CAD (coronary artery disease) Congestive heart failure (CHF) Heart attack HTN (hypertension) Mother HTN (hypertension) Other Substance use Social History (Updated 04/14/25 @ 10:16 by Priya Robertson CMA) Housing: House Alcohol intake: current Patient Tobacco Use Status: Former Tobacco user Years Smoked: 4 college years e-Cigarette/Vaping Use: Never Used Second Hand Smoke Exposure: No service: No Current occupational status: employed 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 Current occupational exposures/hazards: No Cognitive needs: No Hearing needs: No Vision needs: No Questionnaire Thrive Questionnaire Date Thrive assessed: 09/30/24 I am a: Patient What is your living situation today?: I have a steady place to live Within the past 12 months, did the food you bought not last and you didn't have the money to get more?: Never true Within the past 12 months, did you worry whether your food would run out before you got money to buy more?: Never true Do you have trouble paying for medicines?: No Do you have trouble getting transportation to medical appointments?: No Do you have trouble paying your heating and electricity bill?: No Do you have trouble taking care of your child, family member or friend?: No Do you have trouble with day-to-day activities such as bathing, preparing meals, shopping, managing finances, etc.?: No Are you currently unemployed and looking for a job?: No Are you interested in more education?: No Please select the resources that you would like help with: None Currently or been in a relationship where the following occur: No concerns reported THRIVE Score: 0 AUDIT C Alcohol Use Questionnaire (AUDIT-C) 1. How often do you have a drink containing alcohol?: 2-3 times a week 2. How many drinks containing alcohol do you have on a typical day when you are drinking?: 1 or 2 3. How often do you have six or more drinks on one occasion?: Never Total Score: 3 ABIGAIL-7 AMB Questionnaire ABIGAIL-7 Date ABIGAIL - 7 assessed: 10/07/24 Source: Developed by Drs. Alvino Salter, Arelis Mckeon, Cruz Rader and colleagues, with an educational cordell from [employer]. Physical exam (Primary Care) Vital Signs: Last Vital Signs Temp 98.4 F 04/14/25 10:13 Pulse 83 04/14/25 10:13 Resp 16 04/14/25 10:13 BP 120/74 04/14/25 10:13 Pulse Ox 99 04/14/25 10:13 Oxygen Delivery Method Room Air 04/14/25 10:13 BMI result Body Mass Index 41.8 Tobacco/Smoking Status: Tobacco use Status Tobacco use date assessed 04/14/25 04/14/25 10:16 Patient Tobacco Use Status Former Tobacco user 04/14/25 10:16 e-Cigarette/Vaping Use Never Used 04/14/25 10:16 Thrive Assessment: Date of Thrive Assessment Date Thrive assessed 09/30/24 04/14/25 10:11 Currently or been in a relationship where the following occur: No concerns reported Const Orientation/consciousness: patient oriented x3 HENMT Ears: hearing grossly normal bilaterally and TM's normal bilaterally General nose exam: No nasal polyps present Face and sinus: Yes sinuses nontender Mouth: Normal oral and palatal mucosa present Eyes Pupils: Equal, round and reactive pupils present EOM: EOMs intact bilaterally Neck Neck: Yes full ROM and Yes no lymphadenopathy Thyroid: Thyroid normal Chest Chest palpation & inspection: normal inspection of the chest Resp Auscultation: clear to auscultation bilaterally Cardio Rate: regular rate Rhythm: regular rhythm Heart sounds: S1 normal heart sound present and S2 normal heart sound present Peripheral pulses: Peripheral pulses 2+ throughout GI Other: Soft, nontender Auscultation: normal bowel sounds Rectal Exam - Female: deferred General: Yes no CVA tenderness Back/Spine/Pelvis Other: Nontender Back: no CVA tenderness Skin General skin exam: no rashes or lesions noted Neuro General: patient oriented x3, gait normal, CN's II-XI intact bilaterally and deep tendon reflexes 2+ bilaterally Cranial nerves: Yes Equal, round and reactive pupils present Motor exam (neuro): 5/5 motor strength present throughout Sensory Exam: double simultaneous stimulation for sensation normal Coordination: [id number] test normal and Romberg test negative Extrem General: Yes normal to inspection and Yes full ROM Psych Affect: normal affect Attitude: cooperative Thought process: Normal thought process present Thought content: Normal thought content present Insight: Good insight present (Psych) Judgement: Good judgement present (Psych) Results Reviewed Results Reviewed: Laboratory Tests 02/20/24 10/07/24 07:00 08:51 WBC 8.6 RBC 4.52 Hgb 12.6 Hct 39.0 Plt Count 245 Estimated GFR > 60 Fasting Glucose 97 Estimat Average Glucose 108 Hemoglobin A1c % 5.4 Calcium 9.4 Total Bilirubin 0.4 AST 19 ALT 12 Alkaline Phosphatase 85 Total Protein 7.0 Albumin 4.3 Triglycerides 95 Cholesterol 178 LDL Cholesterol, Calc 97 HDL Cholesterol 62 Vitamin B12 392 TSH 1.43 Coding Level of Care Code Est Pt Prev Care 40-64y(42775) Diagnoses Routine general medical examination at a health care facility Z00.00 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 Sooner if needed. Patient understands and agrees with the plan. (2) Hypothyroid: Code(s): E03.9 - Hypothyroidism, unspecified Category: Medical Qualifiers: Hypothyroidism type: due to Cary's thyroiditis Qualified Code(s): E06.3 - Autoimmune thyroiditis Plan: We will check TSH (3) Prediabetes: Code(s): R73.03 - Prediabetes Category: Medical Plan: Labs have. We will monitor. Orders: Orders TSH reflex Free T4 Today E06.3 - Autoimmune thyroiditis, R73.03 - Prediabetes, Z00.00 - Encounter for general adult medical examination without abnormal findings Complete Blood Count Auto Diff Today E06.3 - Autoimmune thyroiditis, R73.03 - Prediabetes, Z00.00 - Encounter for general adult medical examination without abnormal findings Comprehensive [place]. Panel Fast Today E06.3 - Autoimmune thyroiditis, R73.03 - Prediabetes, Z00.00 - Encounter for general adult medical examination without abnormal findings Hemoglobin A1c Today E06.3 - Autoimmune thyroiditis, R73.01 - Impaired fasting glucose, R73.03 - Prediabetes, Z00.00 - Encounter for general adult medical examination without abnormal findings Lipid Panel Today E06.3 - Autoimmune thyroiditis, R73.03 - Prediabetes, Z00.00 - Encounter for general adult medical examination without abnormal findings Microalbumin, Random (w Creat) Today E06.3 - Autoimmune thyroiditis, R73.03 - Prediabetes, Z00.00 - Encounter for general adult medical examination without abnormal findings UA CC w/rflx Micro + Cult Today E06.3 - Autoimmune thyroiditis, R30.0 - Dysuria, R73.03 - Prediabetes, Z00.00 - Encounter for general adult medical examination without abnormal findings
[2025-04-14 10:13] VITALS: BP 120/74; PULSE 83; RESP 16; TEMP 36.9; O2SAT 99; BMI 41.8
--- OUTSIDE RECORDS SUMMARY | 2025-04-14 12:03 | XMS_ITS | Data Portability ---
Author Organization [place] - [facility],, CHARLA MURRELL MD Address [address] [address] Care Team Providers Care Security Business Analyst Name Role Phone CRUZKARRIE BRYANT Primary Care Provider Assessment No assessment recorded. Plan of Treatment Reminders Order Date Submit Date Provider Last Modified By Organization Details Last Modified Time Details Appointments None recorded. Lab cytology report, thin prep, smear or scraping, cervical or vaginal 2024 025 PADMINI [facility] (Centralized Electronic Ordering - All Locations), Patient Can Go To The Location Of Their Choice, [id number] 5 18:16:34 hemoglobin , gastrointe stinal, stool 2024 025 [email or web address] 1 In-Office Order, Internal Use Only DO Not Attach Compendium DO Not Attach Compendium, Do Not Delete/merge, [id number] 5 09:15:43 pap test, thinprep, cervical 2022 023 [facility] (Centralized Electronic Ordering - All Locations), Patient Can Go To The Location Of Their Choice, [id number] 3 07:27:07 TSH + free T4, serum 2022 023 [email or web address] [facility] (Centralized Electronic Ordering - All Locations), Patient Can Go To The Location Of Their Choice, [id number] 3 07:43:37 fecal occult blood, stool 2022 023 [email or web address] 1 In-Office Order, Internal Use Only DO Not Attach Compendium DO Not Attach Compendium, Do Not Delete/merge, [id number] 3 09:50:59 TSH + free T4, serum 2022 023 [facility] - [facility]), Patient Can Go To The Location Of Their Choice, [id number] 3 07:13:24 thyroglobu anita Ab, serum 2022 023 [facility] - All Locations), Patient Can Go To The Location Of Their Choice, [id number] 3 07:13:24 TSH + free T4, serum 2021 022 [facility] - [facility] Locations), Patient Can Go To The Location Of Their Choice, [id number] 3 07:49:07 Referral None recorded. Procedures None recorded. Surgeries None recorded. Imaging MAMMO, screening, digital, bilateral - Breast Aspiration and/or Biopsy if needed 2024 025 [facility], [address], [address], [place], [address], 5 17:03:03 MAMMO, screening, digital, bilateral - Breast Aspiration and/or Biopsy if needed 2022 023 [facility] Orders, [address], [address], [place], [address], 4 16:47:31 Medication Orders Blisovi Fe 1/20 (28) 1 mg-20 mcg (21)/75 mg (7) tablet 2024 025 [facility]/Pharmacy #[id number], [address] [place], [address], 5 09:15:44 Blisovi Fe 1/20 (28) 1 mg-20 mcg (21)/75 mg (7) tablet 2022 023 [facility]/Pharmacy #[id number], [address] [place], [address], 3 09:47:29 levothyrox ine 100 mcg tablet 2022 023 [email or web address] [facility]/Pharmacy #[id number], [address] [place], [address], 5 08:48:39 levothyrox ine 125 mcg tablet 2021 022 [facility]/Pharmacy #[id number], [address] [place], [address], 09:18:55 Patient TargetsNo targets recorded. Patient Instructions Encounter Date Encounter Id Patient Instructions Last Modified By Organization Details Last Modified Time 03/26/2022 [id number] hypothyroidism: care instructions Not available 03/26/2022 15:12:20 This visit is a phone telehealth visit. The patient consented to the visit by phone. The patient was at home at the time of the call and the provider and patient were the only people on the line. I was at [address] [facility], [address], [place], [place], at the time of the call. She had recent thyroid testing that showed her FT4 was elevated at 1.97, TSH is 1.21. She is taking 137 mcg a day, has been for years. She did lose 40 pounds of weight though in the past year. We discussed that she has too much thyroid hormone replacement, and we are going to drop her down to 125 mcg, and retest in 4 weeks. She understands and agrees. Possible complications from having too high a thyroid hormone level discussed, she is aware. The patient was agreeable to this plan. She is aware of the limitations caused by the covid restrictions, and this phone call, but was appreciative of the efforts to complete the evaluation. Face to face discussion 20 minutes Not available 03/26/2022 15:16:44 05/31/2022 [id number] hypothyroidism: care instructions Not available 05/31/2022 13:29:55 This visit is a phone telehealth visit. The patient consented to the visit by phone. The patient was at home at the time of the call and the provider and patient were the only people on the line. I was at [address] [facility], [address], [place], [place], at the time of the call. She had a recent TSH and FT4 that showed her FT4 is high, even though we had dropped her dose from 137 to 125 mcg in 03/20. Her Ft4 is 1.87, on 125 mcg a day, and it had been 1.97 on the 137 mcg. Normal range is up to 1.80. She is going through a difficult divorce and has lost 50 pounds in the past year, she believes due to stress and not eating. She has no symptoms of hyperthyroidism, she denies diarrhea, insomnia, tremor, palpitations, etc. We disucssed al lthis nad decided to drop down to 1000 mcg a day, it may be that she has less needs now that she weighs less. We also disucssed tle small possibility that she has developed hyperthroidism, and if she develops symptoms then she is advised ot call me and we may take her off meds or drop even mroe significantly. [facility] TSH, FT4 nad antitrhyroid antibodies in 4 weeks. She has hypothyroidism. We discussed the symptoms of underactive thyroid, including fatigue, weight gain, constipation, difficulty concentrating, and feeling cold, and we also discussed the symptoms of over replacement of thyroid hormone, including the warning signs of heart palpitations or rapid heart beat, diarrhea, jitteriness, and diarrhea. We discussed how to take the medication first thing in the morning, on an empty stomach, and have no food for an hour. All questions answered. The patient was agreeable to this plan. She is aware of the limitations caused by the covid restrictions, and this phone call, but was appreciative of the efforts to complete the evaluation. Face to face discussion 30 minutes Not available 05/31/2022 13:37:59 07/17/2022 [id number] hypothyroidism: care instructions Not available 07/17/2022 10:22:25 This visit is a phone telehealth visit. The patient consented to the visit by phone. The patient was at home at the time of the call and the provider and patient were the only people on the line. I was at [address] , [address], [place], [place], at the time of the call. She was hyperthyroid in 06/21 with a FT4 that was elevated, we dropped her dose of thyroid hormone down and recent testing showed the FT4 and TSH now in normal range. She feels well on this dose. We also did an antithyroid antibody test and it is elevated, she has an autoimmune component to her hypothyroidism. . We discussed the way that the brain manufactures TSH, how this relates to her serum levels of thyroid hormone, how the thyroid responds to TSH, and why the TSH might be elevated. We discussed the symptoms of underactive thyroid, including fatigue, weight gain, constipation, difficulty concentrating, and feeling cold, and we also discussed the symptoms of over replacement of thyroid hormone, including the warning signs of heart palpitations or rapid heart beat, diarrhea, jitteriness, and diarrhea. We discussed how to take the medication first thing in the morning, on an empty stomach, and have no food for an hour. All questions answered. She will continue on this dose until we see her in 03/21 for annual, unless she has symptoms of under or overactive thyroid, and then she will call for an interim test. . The patient was agreeable to this plan. She is aware of the limitations caused by the covid restrictions, and this phone call. Face to face discussion 20 minutes Not available 07/17/2022 10:24:14 03/13/2023 [id number] learning about healthy weight Not available 03/13/2023 09:47:03 She is here for annual, doing well on the lo loestrin. TSH 07/19 was 3.09, FT4 was 1.41, antithyroid antibody high at 7.0, top normal range 4.1. She was started on the lo loestrin as she has borderline hypertension issues already, but her insurance does not cover it and it is costing $100 a month, she would like to try a 20 mcg pill which would be free. Telehealth 06/21: She had a recent TSH and FT4 that showed her FT4 is high, even though we had dropped her dose from 137 to 125 mcg in 03/20. Her Ft4 is 1.87, on 125 mcg a day, and it had been 1.97 on the 137 mcg. Normal range is up to 1.80. She is going through a difficult divorce and has lost 50 pounds in the past year, she believes due to stress and not eating. She has no symptoms of hyperthyroidism, she denies diarrhea, insomnia, tremor, palpitations, etc. We disucssed al lthis nad decided to drop down to 1000 mcg a day, it may be that she has less needs now that she weighs less. We also disucssed tle small possibility that she has developed hyperthroidism, and if she develops symptoms then she is advised ot call me and we may take her off meds or drop even mroe significantly. chekc TSH, FT4 nad antitrhyroid antibodies in 4 weeks. She has hypothyroidism. We discussed the symptoms of underactive thyroid, including fatigue, weight gain, constipation, difficulty concentrating, and feeling cold, and we also discussed the symptoms of over replacement of thyroid hormone, including the warning signs of heart palpitations or rapid heart beat, diarrhea, jitteriness, and diarrhea. We discussed how to take the medication first thing in the morning, on an empty stomach, and have no food for an hour. telehealth 03/20: She had recent thyroid testing that showed her FT4 was elevated at 1.97, TSH is 1.21. She is taking 137 mcg a day, has been for years. She did lose 40 pounds of weight though in the past year. We discussed that she has too much thyroid hormone replacement, and we are going to drop her down to 125 mcg, and retest in 4 weeks. She understands and agrees. Possible complications from having too high a thyroid hormone level discussed, she is aware. ___ Note from 03/20: She is here for annual exam, she requests STI testing as her cheated on her and now they are getting a divorce. She appears to be doing well. Check tsh and ft4 and adjust dose as necessary. She will try the 20 mcg pill, will check BP at home regularly, call if hypertension occurs. Monthly self breast exam was taught, and stressed, and is advised to call if she discovers any new mass in the breast. We reviewed the interaction of the OCP with antibiotics. We discussed the need to use a condom during antibiotic use and also for a minimum of three weeks following the use of antibiotics. We discused interactions with some herbal and OTC meds, such as [facility] Possible side effects, and the stated risk of one in 10,000 to develop a blood clot/ DVT/PE were also discussed. Safe sex was stressed. All questions answered, rx to be called in to pharmacy. Not available 03/13/2023 09:51:07 05/05/2024 [id number] learning about healthy weight Not available 05/05/2024 09:15:43 She is here for annual, doing well on the OCP, and her BP is under control. Her divorce is finalized, she is happy about that. Her 11-year-old daughter is doing better. Note from 2022: She is here for annual, doing well on the lo loestrin. TSH 07/19 was 3.09, FT4 was 1.41, antithyroid antibody high at 7.0, top normal range 4.1. She was started on the lo loestrin as she has borderline hypertension issues already, but her insurance does not cover it and it is costing $100 a month, she would like to try a 20 mcg pill which would be free. She appears to be doing well. Monthly self breast exam was taught, and stressed, and is advised to call if she discovers any new mass in the breast. We reviewed the interaction of the OCP with antibiotics. We discussed the need to use a condom during antibiotic use and also for a minimum of three weeks following the use of antibiotics. We discused interactions with some herbal and OTC meds, such as [facility] Possible side effects, and the stated risk of one in 10,000 to develop a blood clot/ DVT/PE were also discussed. Safe sex was stressed. All questions answered, rx to be called in to pharmacy. Not available 05/05/2024 09:15:59 Reason for Referral None Reported. Results Created Date Observation Date Name Description Value Unit Range Abnormal Flag Note LastModifiedBy Organization Detail LastModifiedTime 03/08/20 22 03/09/[address]/GC AMPLI FIED PROBE C.trach.amp probe thin prep (neg) NEGAT ROXY No Chlam ydia Trach omati s RNA detec socorro in this patie nt's sampl e (REFE RENCE RANGE /NORM AL VALUE : NOT DETEC SOCORRO) Note: This test uses trans cript ion- media socorro ampli ficat ion metho d to detec t rRNA from C. Trach omati s Not Available [facility] (Centralized Electronic Ordering - All Locations) Patient Can Go To The Location Of Their Choice, [id number] 03/09/2022 13:52:29 03/08/20 22 03/09/[address]/GC AMPLI FIED PROBE GC amplified probe thin prep (neg) NEGAT ROXY No Neiss eria Gonor rhoea e RNA detec socorro in this patie nt's sampl e (REFE RENCE RANGE /NORM AL VALUE : NOT DETEC SOCORRO) NOTE: This test uses trans cript ion-m ediat ed ampli ficat ion metho d to detec t rRNA from N.Scar orrho eae. A negat roxy resul t does not precl ude infec tion. In the case of a negat roxy urine resul t, testi ng of an endoc ervic al(fe male) or ureth ral (male ) speci men is recom baltazar d if there is high clini yemi suspi cion of infec tion. Due to very high sensi tivit y of Nucle ic Acid Ampli ficat ion Test, false posit roxy resul ts may occur . There fore, speci men handl ing is extre titi impor tant. In patie nts in whom the disea se is unlik cesia, addit ional sampl e for testi ng shoul d be consi dered after an initi al posit roxy resul t. The perfo rmanc e rhett cteri stics of this test have not been evalu ated in child rosalie. The Aptim a Combo 2 assay is not inten ded for the evalu ation of suspe cted sexua l abuse or for other medic o-leg al indic ation s. The order ing provi keesha shoul d asses s if the patie nt had conse nsual sex witho ut risk of sexua l abuse . Consu lt [facility] if neede d. Conta ct phone numbe r . Thera peuti c failu re or succe ss canno t be deter mined with the Aptim a Combo 2 assay since nucle ic acid may persi st follo wing appro priat e antim icrob ial thera py. The Cente rs for Disea se Contr ol and Preve ntion ([facility]) recom mends confi rmato ry retes ting using cultu re or a diffe rent nucle ic acid ampli ficat ion test when posit roxy resul ts occur , if indic ated. Not Available [facility] (Centralized Electronic Ordering - All Locations) Patient Can Go To The Location Of Their Choice, [id number] 03/09/2022 13:52:29 03/08/20 22 03/08/2022 [facility] CYTOL OGY results Elizabeth boateng Name: DEE DEE RUBY : 1975 (Age: 46) Lab Acces valentín #: [id number] Colle ction Date: 03/08 Acces valentín Date: 03/09 Sign Out Date: 03/14 Tissu e Sourc e: 1: THINP REP PRIVATE INQUIRY AGENT PAP TEST, CERVI YEMI: Final Diagn osis: NEGAT ROXY FOR INTRA EPITH ELIAL LESIO N OR MALIG LASHAUN . Satis facto ry for evalu ation . Endoc ervic al/tr ansfo rmati on zone ABSEN T. Clini yemi Histo ry: Date of Last Menst rual Perio d: 0 Menst rual Histo ry: not avail able Contr acept roxy Histo ry: not avail able Ancil claire Testi ng: HPV (ASCU S) Chlam ydia/ GC Case image d by the ThinP rep Imagi ng Syste m with omi pineda or mani wren Perfo rmed at [facility] ate Refer ence Labor atory depar tment of Cytol ogy, [address] [place] Clini yemi Histo ry (othe r): Z01.4 19, Z11.3 , LPS negat roxy, takes no perio d pills , routi ne scree n Phone #: [phone], On-Ca ll Patho logis t: [id number] Not Available [facility] (Centralized Electronic Ordering - All Locations) Patient Can Go To The Location Of Their Choice, 03/14/2022 14:50:42 03/08/20 22 03/08/2022 fecal occul t blood , stool Occult Blood negati ve Not Available In-Office Order Internal Use Only DO Not Attach Compendium DO Not Attach Compendium, Do Not Delete/merge, [id number] 03/08/2022 09:39:08 05/30/19 23 05/30/2022 TSH WITH REFLE X TO FT4 results Dupli adam Order Not Available [facility] (Centralized Electronic Ordering - All Locations) Patient Can Go To The Location Of Their Choice, 05/30/2022 12:01:30 05/30/19 23 05/30/2022 FREE T4 free T4 1.87 NG/dL (0.70- 1.80) high Not Available [facility] (Centralized Electronic Ordering - All Locations) Patient Can Go To The Location Of Their Choice, 05/30/2022 18:06:24 05/30/19 23 05/30/2022 TSH TSH 2.20 uIU/m L (0.4-4 .2) Not Available [facility] (Centralized Electronic Ordering - All Locations) Patient Can Go To The Location Of Their Choice, 05/30/2022 18:06:25 07/12/19 23 07/11/2022 FREE T4 free T4 1.41 NG/dL (0.70- 1.80) Not Available [facility] (Centralized Electronic Ordering - All Locations) Patient Can Go To The Location Of Their Choice, 07/11/2022 15:15:57 07/12/19 23 07/11/2022 TSH TSH 3.09 uIU/m L (0.4-4 .2) Not Available [facility] (Centralized Electronic Ordering - All Locations) Patient Can Go To The Location Of Their Choice, [id number] 07/11/2022 15:15:58 07/12/19 23 07/12/2022 ANTIT HYROG LOBUL IN AB antithyroglo bulin Ab 7.0 IU/mL (<4.1) high Antib jian measu remen t repre sents one oly eter in a multi crite christopher diagn ostic proce ss. Corre late resul ts with clini yemi prese ntati on. This test was perfo rmed on the Abbot t Archi tect immun oassa y syste m. Not Available [facility] ([facility]ized Electronic Ordering - All Locations) Patient Can Go To The Location Of Their Choice, [id number] 07/12/2022 14:30:32 03/13/20 23 03/13/2023 FREE T4 free T4 1.50 NG/dL (0.70- 1.80) Not Available [facility] ([facility]ized Electronic Ordering - All Locations) Patient Can Go To The Location Of Their Choice, [id number] 03/13/2023 21:04:35 03/13/20 23 03/13/2023 TSH TSH 3.19 uIU/m L (0.4-4 .2) Not Available [facility] ([facility]ized Electronic Ordering - All Locations) Patient Can Go To The Location Of Their Choice, [id number] 03/13/2023 21:04:36 03/13/20 23 03/13/2023 [facility] results Patijasen nt Name: DEE DEE RUBY tasneem : 1975 (Age: 47) Lab Acces valentín #: [id number] Colle ction Date: 03/13 Acces valentín Date: 03/13 Sign Out Date: 03/19 Tissu e Sourc e: 1: THINP REP PRIVATE INQUIRY AGENT PAP TEST, CERVI YEMI: Final Diagn osis: NEGAT ROXY FOR INTRA EPITH ELIAL LESIO N OR MALIG LASHAUN . Satis facto ry for evalu ation . Endoc ervic al/tr ansfo rmati on zone prese nt. Clini yemi Histo ry: Date of Last Menst rual Perio d: NONE Menst rual Histo ry: not avail able Contr acept roxy Histo ry: not avail able Janis elder: HPV (ASCU S) Case image d by the ThinP rep Ermiasi jerrod Syste m with omi pineda or mani wren Perfo rmed at [facility] ate Refer ence Labor atory depar tment of Cytol ogy, [address] [place] Clini yemi Histo ry (othe r): Z01.4 19, ROUTI NE SCREE N, LPS 03/08 NEG Phone #: [phone], On-Ca Patho logis t: [id number] Not Available [facility] ([facility]ized Electronic Ordering - All Locations) Patient Can Go To The Location Of Their Choice, [id number] 03/19/2023 11:33:30 03/13/20 23 03/13/2023 fecal occul t blood , stool Occult Blood negati ve Not Available In-Office Order Internal Use Only DO Not Attach Compendium DO Not Attach Compendium, Do Not Delete/merge, [id number] 03/13/2023 09:17:30 05/05/19 25 05/08/2024 IGP, RFX APTIM A HPV ASCU diagnosis: Commen t NEGAT ROXY FOR INTRA EPITH ELIAL LESIO N OR RACHEL WILKS . Not Available [facility] ([facility]) [address] [facility], [place], [address], 05/08/2024 18:16:34 05/05/19 25 05/08/2024 IGP, RFX APTIM A HPV ASCU specimen adequacy: Commen t Satis facto ry for evalu ation . No endoc ervic al compo nent is ident ified . Not Available [facility] ([facility]) [address] [facility], [place], [address], 05/08/2024 18:16:34 05/05/19 25 05/08/2024 IGP, RFX APTIM A HPV ASCU clinician provided ICD10: Commen t Z01.4 19 Not Available [facility] ([facility]) [address] [place], [address], 05/08/2024 18:16:34 05/05/19 25 05/08/2024 IGP, RFX APTIM A HPV ASCU performed by: Jane Lara , Sukh long (ASCP ) Not Available [facility] ([facility]) [address] [place], [address], 05/08/2024 18:16:34 05/05/19 25 05/08/2024 IGP, RFX APTIM A HPV ASCU . . Not Available [facility] ([facility]) [address] [facility], [place], [address], 05/08/2024 18:16:34 05/05/19 25 05/08/2024 IGP, RFX APTIM A HPV ASCU note: Jane long The Pap smear is a scree britney test lemuel neald to aid in the detec tion of melissa ligna nt and malig nant condi tions of the uteri ne cervi x. It is not a diagn ostic proce dure and shoul d not be used as the sole means of detec ting cervi yemi cance r. Both false -posi tive and false -nega tive repor ts do occur . Not Available [facility] ([facility]) [address] [place], [address], 05/08/2024 18:16:34 05/05/19 25 05/08/2024 IGP, RFX APTIM A HPV ASCU test methodology: Jane long This liqui d based ThinP rep(R ) pap test was scree aleisha with the use of an image guide eleazar pérez. Not Available [facility] ([facility]) [address] [place], [address], 05/08/2024 18:16:34 05/05/19 25 05/08/2024 IGP, RFX APTIM A HPV ASCU . Commen t The HPV DNA refle x crite christopher were not met with this speci men resul t there fore, no HPV testi ng was perfo rmed. Not Available [facility] ([facility]) [address] [facility], [place], [address], 05/08/2024 18:16:34 05/05/19 25 05/05/2024 hemog lobin , gastr ointe marianne l, stool Occult Blood negati ve Not Available In-Office Order Internal Use Only DO Not Attach Compendium DO Not Attach Compendium, Do Not Delete/merge, [id number] 05/05/2024 08:52:43 02/02/20 23 02/01/2023 MAMMO , scree britney, digit al, bilat eral No observ ation record ed. [address] Breast [facility] [address] [place], [address], 02/01/2023 14:35:38 02/27/20 24 02/27/2024 MAMMO , scree britney, digit al, bilat eral No observ ation record ed. [address] [facility] [place], [address], 02/28/2024 08:07:14 03/08/20 25 03/08/2025 MAMMO , scree britney, digit al, bilat eral No observ ation record ed. [address] Breast [facility] [address] [place], [address], 03/09/2025 07:37:00 Result Notes None recorded. Problems Name Problem SNOMED Code Status Onset Date Resolution Date Notes Provider Name and Address Organization Details Recorded Time Hypertens roxy disorder 96009173 Active 2013 developed gestationa l hypertensi on in 2013 and it never resolved Not Available [facility] 3 16:31:06 Morbid obesity 157620617 Active 2014 Not Available [facility] 3 16:31:06 Metabolic syndrome X 911177323 Active 2015 PCP began Metformin 11/2015 as FBS was 113 and 2 hour glucose tolerance was 156. Not Available [facility] 3 16:31:06 Hypothyro idism 34751226 Active 2015 positive anti thyroid peroxidase antibodies Not Available [facility] 3 16:31:06 Autoimmun e hypothyro idism 112804120 Active 2022 Not Available [facility] 3 16:31:06 Problem Notes None recorded. Procedures Surgical History Date Name Laterality Status Provider Name and Address Organization Details Recorded Time 4 Most Recent Mammogram completed Tata Ibrahim in [facility], 04/23/2024 14:37:15 4 Other completed Tata Ibrahim in [facility], 11/22/2015 14:31:38 Imaging Results None recorded. Procedure Notes None recorded. Medical Equipment None Reported. Allergies Allergen ID Allergen Name Allergen Category Reaction Reaction Severity Criticality Documentation Date Start Date Code Code System Note Provider Name and Address Organization Details Recorded Time 43314 metformin medicatio n hives Not available Not available 05/05/2024 6809 RxNorm GUILLERMO Pierce in [facility], 5 08:50:13 Medications Name Sig Start Date Stop Date Status Note LastModified by Organization Details LastModified Time levothyroxi ne 137 mcg tablet TAKE 1 TABLET BY MOUTH EVERY DAY 03/13 completed Not Available Not Available Not Available trazodone 50 mg tablet TAKE ONE TABLET ORALLY BEDTIME NEEDED FOR SLEEP active Not Available Not Available No t Available ibuprofen 800 mg tablet 03/08 completed Not Available Not Available Not Available ofloxacin 0.3 % eye drops INSTILL 2 DROPS IN EACH AFFECTED EYE 4 TIMES A DAY FOR 5 DAYS active Not Available Not Available No t Available fluconazole 150 mg tablet TAKE 1 TABLET(S) EVERY DAY BY ORAL ROUTE AT BEDTIME FOR 1 DAY. 02/11 completed Not Available Not Available Not Available levothyroxi ne 100 mcg tablet TAKE 1 TABLET BY MOUTH EVERY DAY 05/05 completed Not Available Not Available Not Available levothyroxi ne 88 mcg tablet 12/27 completed Not Available Not Available Not Available methocarbam ol 750 mg tablet 02/28 completed Not Available Not Available Not Available ciprofloxac in 0.3 % eye drops 1 DROP IN AFFECTED EYE EVERY 2 HOURS WHILE AWAKE X2DAYS, THEN EVERY 4HRS WHILE AWAKE X5DAYS 05/05 completed Not Available Not Available Not Available benzonatate 100 mg capsule 12/04 completed Not Available Not Available Not Available levothyroxi ne 125 mcg tablet TAKE 1 TABLET BY MOUTH EVERY DAY 03/13 completed Not Available Not Available Not Available tobramycin 0.3 % eye drops 03/13 completed Not Available Not Available Not Available Guaifenesin AC 10 mg-100 mg/5 mL oral liquid take 2 teaspoonf uls by mouth every 4 hours if needed for cough 12/17 completed Not Available Not Available Not Available nystatin 100,000 unit/gram topical powder APPLY TO AFFECTED AREA TWICE A DAY 02/11 completed Not Available Not Available Not Available epinephrine 0.3 mg/0.3 mL injection, auto-inject or INJECT 0.3 MG INTRAMUSC ULARLY ONCE active Not Available Not Available No t Available albuterol sulfate HFA 90 mcg/actuati on aerosol inhaler INHALE 2 PUFFS EVERY 6 HOURS NEEDED FOR SHORTNESS OF BREATH OR WHEEZING active Not Available Not Available No t Available metformin ER 500 mg tablet,exte nded release 24 hr TAKE 1 TABLET BY MOUTH EVERY DAY 03/26 completed Not Available Not Available Not Available levothyroxi ne 112 mcg tablet TAKE 1 TABLET BY MOUTH EVERY DAY active Not Available Not Available No t Available amoxicillin 875 mg-potassiu m clavulanate 125 mg tablet TAKE 1 TABLET BY MOUTH EVERY 12 HOURS FOR 7 DAYS 05/05 completed Not Available Not Available Not Available olopatadine 0.2 % eye drops 03/13 completed Not Available Not Available Not Available Tri-Legest Fe 1-20 (5)/1-30(7) /1mg-35mcg( 9) tablet 02/22 completed Not Available Not Available Not Available Lo Loestrin Fe 1 mg-10 mcg (24)/10 mcg (2) tablet TAKE 1 TABLET BY MOUTH EVERY DAY 05/05 completed Not Available Not Available Not Available Blisovi Fe 1/20 (28) 1 mg-20 mcg (21)/75 mg (7) tablet Take 1 tablet every day by oral route for 84 days. 2024 active Not Available Not Available Not Avai lable Afluria 2677-2407 (PF) 45 mcg(15 mcg x 3)/0.5 mL intramuscul ar syringe inject 0.5 millilite r intramusc ularly 12/17 completed Not Available Not Available Not Available Flucelvax Quad (PF) 60 mcg (15 mcg x 4)/0.5 mL IM syringe inject 0.5 millilite rs intramusc ularly active Not Available Not Available No t Available Fluzone Quad (PF) 60 mcg (15 mcg x 4)/0.5 mL IM syringe ADM 0.5ML IM UTD active Not Available Not Available No t Available Vitals Date Recorded Body weight Body mass index (BMI) Body height Body temperature Heart rate Systolic And Diastolic Provider Name and Address Organization Details Last Updated DateTime 119535. 44 g 46.9 kg/m2 162.56 cm 97.2 [degF] 93 /min 140/79 mm[Hg] Tata Ibrahim in [facility], 08:48:56 Date Recorded Body height Provider Name an d Address Organization Details Last Updated DateTime 05/31/2022 162.56 cm Liz Tucker es in [facility], 05/31/2022 13:21:02 Date Recorded Body height Provider Name an d Address Organization Details Last Updated DateTime 07/17/2022 162.56 cm Tata Tucker es in [facility], 07/17/2022 10:11:56 Date Recorded Body height Body mass index (BMI) Body weight Heart rate Systolic And Diastolic Provider Name and Address Organization Details Last Updated DateTime 03/13/2023 162.56 cm 43.3 kg/m2 880085.2 8 g 75 /min 135/66 mm[Hg] Liz Ibrahim in [facility], 03/13/2023 09:22:58 Date Recorded Body height Provider Name an d Address Organization Details Last Updated DateTime 03/26/2022 162.56 cm Tata Tucker es in [facility], 03/26/2022 14:58:06 Social History Question Answer Notes LastModified by Organizat ion Details LastModified Time Tobacco Smoking Status Never Smoker Tata GUILLERMO Jay in [facility], 10/27/2015 08:09:08 How Many Years Have You Consumed Alcohol? 24 Information not available 02/28/2021 What Is Your Level Of Caffeine Consumption? Moderate Information not available 11/22/2015 In The 14 Days Before Symptom Onset, Have You Had Close Contact With A Laboratory-confir med COVID-19 While That Case Was Ill? No Information not available 02/28/2021 In The 14 Days Before Symptom Onset, Have You Had Close Contact With A Person Who Is Under Investigation For COVID-19 While That Person Was Ill? No Information not available 02/28/2021 Have You Been To An Area Known To Be High Risk For COVID-19? No Information not available 02/28/2021 What Type Of Diet Are You Following? REGULAR Information not available 11/22/2015 Which Illicit Or Recreational Drugs Have You Used? No Information not available 11/22/2015 Do You Reside In Or Have You Traveled To An Area Where Ebola Virus Transmission Is Active? No Information not available 11/22/2015 Education 4 Year College Information not available 11/22/2015 What Is The Highest Grade Or Level Of School You Have Completed Or The Highest Degree You Have Received? [id number] Information not available 02/28/2021 How Many Days In The Past Year Have You Had A Heavy Drinking Consumption (4+ Female, 5+ Male)? 0 Information no t available 12/14/2016 Are There Any Guns Present In Your Home? No Information not available 02/28/2021 High Number Of Sexual Partners No Information not available 11/22/2015 To Which Gender Do You Self-identify? Female Information not available 11/22/2015 Marital Status Informatio n not available 03/08/2022 What Was The Date Of Your Most Recent Tobacco Screening? 05/05/2024 Information not available 05/05/2024 What Is Your Relationship Status? Information not available 03/08/2022 Are You Sexually Active? No Not [place] Information not available 05/05/2024 General Stress Level Medium Information not available 05/05/2024 How Many Years Have You Smoked Tobacco? 0 Information not available 11/22/2015 Have You Recently (within The Last 12 Weeks, Or During A Current ) Traveled To Or Lived In A Zika-affected Area? No Information not available 11/22/2015 How Many Days In The Past Year Have You Consumed 4 Or More Drinks? 0 Information no t available 02/28/2021 Sex: Female Functional Status Question Answer Note LastModified by Organizat ion Details LastModified Time Do you use any illicit or recreational drugs? No Information not available 02/28/2021 Do you or have you ever used any other forms of tobacco or nicotine? No Information not available 02/28/2021 What is your level of alcohol consumption? Occasional Information not available 11/22/2015 Do you or have you ever used smokeless tobacco? Never used smokeless tobacco Information not available 12/04/2018 Are you currently employed? 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 Never used electronic cigarettes Information not available 12/04/2018 What is your exercise level? Occasional Information not available 12/14/2016 Mental Status Question Answer Note LastModified by Organization D etails LastModified Time Do you feel stressed (tense, restless, nervous, or anxious, or unable to sleep at night)? [id number] Information not available 05/05/2024 Family History Relationship Description Onset Age of this Age Resolved Age Notes LastModified by Organization Details LastModified Time Father Substance abuse [email or web address] Not available 2015 08:04:41 Mother Hypertensive disorder [email or web address] Not available 2015 08:04:55 Mother Malignant neoplasm of uterus pre cancer uterin e tmeczywor Not available 11/22/2015 14:26:51 Maternal Grandmother Malignant neoplasm of ovary great grandm other [email or web address] Not available 11/22/2015 14:27:19 Maternal Grandmother Problem pancre atic cancer tmeczywor Not available 11/22/2015 14:28:31 Maternal Aunt Problem pancre atic cancer tmeczywor Not available 11/22/2015 14:28:05 Sister Problem polyps tmeczywor Not available 11/22/2015 14:29:24 Medical History Condition Response Anesthesia complications N High Blood Pressure N Candidate for MyRisk panel N Autoimmune Condition N Kidney or Bladder Problems N Thyroid Problems Y GI Problems N Lung Disease N Depression N Defects or Inherited Disease N History of Ovarian Cancer N Anemia N History of Breast Cancer N ISAK exposure N BRCA testing in past N Osteopenia N Psychiatric Illness N Anxiety Disorder Y Diabetes N Arthritis N Headaches or Migraines N Infertility Y Asthma Y History of Cancer N Endometriosis N Hepatitis N Heart Disease N Hypertension N Osteoporosis N Gynecological History Statement/Question Response Flow Light Date of LMP Frequency of Cycle (Q days) 28 Menses Monthly Y Duration of Flow (days) 4 Age at Menarche 14 Current Control Method BCPs Most Recent Mammogram 02/27/2024 Age at First Child 37 Obstetrics History GPAL:G 1 P 0 0 0 1 Type Value Living 1 Total 1 Immunizations Vaccine Type Date Status Note Provider Nam e and Address Organization Details Recorded Time Influenza, split virus, quadrivalent, preservative 7 completed Tata Meczywor null [place] - [facility], 03/26/2022 14:58:15 Influenza, split virus, quadrivalent, preservative 8 completed Tata Meczywor null [place] [facility], 03/26/2022 14:58:15 Influenza, split virus, quadrivalent, preservative 0 completed Tata Meczywor null [place] - [facility], 03/26/2022 14:58:15 Influenza, MDCK, quadrivalent, PF 2 completed Tata Meczywor null, [place] [facility], 07/17/2022 10:16:48 Influenza, split virus, quadrivalent, PF 1 completed Tata Meczywor null, [place] - [facility], 07/17/2022 10:16:48 Influenza, MDCK, quadrivalent, PF 9 completed Tata Meczywor null, [place] [facility], 07/17/2022 10:16:48 Influenza, MDCK, quadrivalent, PF 8 completed Tata Meczywor null, [place] - [facility], 07/17/2022 10:16:48 COVID-19, mRNA, LNP-S, PF, 30 mcg/0.3 mL dose 1 completed Tata Meczywor null, [place] - [facility], 07/17/2022 10:16:48 COVID-19, mRNA, LNP-S, PF, 30 mcg/0.3 mL dose 1 completed Tata Meczywor null, [place] - [facility], 07/17/2022 10:16:48 COVID-19, mRNA, LNP-S, PF, 30 mcg/0.3 mL dose 1 completed Tata Meczywor null, [place] - [facility], 07/17/2022 10:16:48 Tdap 1 completed Tata Meczywor null, [place] - [facility], 07/17/2022 10:16:48 Tdap 1 completed Tata Meczywor null, [place] - [facility], 07/17/2022 10:16:48 Influenza, split virus, trivalent, preservative 0 completed Tata Meczywor null, [place] - [facility], 07/17/2022 10:16:48 Influenza, split virus, trivalent, PF 6 completed Tata Meczywor null, [place] - [facility], 07/17/2022 10:16:48 influenza, unspecified formulation 3 completed Tata garrison [place] - [facility], 02/18/2023 07:50:01 Past Encounters Encounter ID Performer Location Encounter Start Date Encounter Closed Date Diagnosis/Indication Diagnosis SNOMED-CT Code Diagnosis ICD10 Code Diagnosis IMO Codes Diagnosis Note [id number] MD CHARLA Edwards MD [address] [place] [address],[place] [address] [place] [id number] 11/22/2015 14:11:04 11/22/2015 15:40:01 Specialized medical examination 97667998 Z01.419 Venereal d isease screening 946070755 Z11.3 Abnormal weight gain 161 711548 R63.5 Morbid obesity 627014597 E66.01 Hypertensive disorder 38 011045 I10 [id number] MD CHARLA Edwards MD [address] [place] [address], [place] [address] 11/30/2015 08:19:07 11/30/2015 10:49:03 Hypothyroidism 60278153 E03.8 Cary thyroiditis 21 077428 E06.3 [id number] MD CHARLA Edwards MD [address] [place] [address], [address] [address] 12/28/2015 10:55:39 12/28/2015 11:55:08 Hypothyroidism 45801698 E03.8 [id number] MD CHARLA Edwards MD [address] [place] [address], [address] [place] [id number] 5 12/14/2016 10:53:17 12/14/2016 11:59:18 Specialized medical examination 54050280 Z01.419 Venereal d isease screening 331864308 Z11.3 Hypothyroidism 95830669 E03.8 [id number] MD CHARLA Edwards MD [address] [place] [address], [place] [address] 02/22/2017 08:18:02 02/22/2017 10:08:20 Hypothyroidism 47239551 E03.8 Metabolic syndrome X 237 933576 E88.81 [id number] CharlaMD CHARLA Zamora MD [address] [place] [address] [place] [address] 03/25/2017 07:52:10 03/25/2017 10:31:46 Hypothyroidism 42026270 E03.8 Morbid obesity 476439980 E66.01 [id number] MD CHARLA Edwards MD [address] [place] [address] [facility] [place] [address] 12/17/2017 10:37:45 12/17/2017 13:10:21 Specialized medical examination 73079117 Z01.419 Screening for malignant neoplasm of rectum 299636330 Z12.12 Screening mammography 24 246717 Z12.31 Hypothyroidism 86679542 E03.8 Morbid obesity 117419186 E66.01 Metabolic syndrome X 237 743621 E88.81 [id number] MD CHARLA Edwards MD [address] [place] [address] Godl [facility] [place] [address] 12/04/2018 09:11:51 12/04/2018 11:51:40 Hypothyroidism 17488580 E03.8 Specialize d medical examination 57399225 Z01.419 Screening for malignant neoplasm of rectum 818521205 Z12.12 Screening mammography 24 778465 Z12.31 Candidiasis of skin 4988 3006 B37.2 Candidal vulvovaginitis 30152295 B37.3 [id number] MD CHARLA Edwards MD [address] [place] [address] [place] [address] 02/12/2020 09:16:03 02/12/2020 09:56:02 Specialized medical examination 42606667 Z01.419 Screening for malignant neoplasm of rectum 747338512 Z12.12 Screening mammography 24 481226 Z12.31 Hypothyroidism 42629791 E03.8 [id number] MD CHARLA Edwards MD [address] [place], [place] [address] [address] 02/28/2021 09:19:01 02/28/2021 10:48:30 Specialized medical examination 24774168 Z01.419 Screening for malignant neoplasm of rectum 383956017 Z12.12 Screening mammography 24 917023 Z12.31 Hypothyroidism 29886583 E03.8 [id number] MD CHARLA Edwards MD [address] [place] [address],[place] [address] 03/08/2022 09:38:08 03/08/2022 13:21:29 Specialized medical examination 39304804 Z01.419 Screening for malignant neoplasm of rectum 549662126 Z12.12 Screening mammography 24 698884 Z12.31 Hypothyroidism 40736442 E03.8 Venereal d isease screening 545904338 Z11.3 [id number] MD CHARLA Edwards MD [address] [place] [address],[place] [address] 03/26/2022 14:52:45 03/26/2022 15:34:45 Hypothyroidism 66170427 E03.8 [id number] MD CHARLA Edwards MD [address] [place] [address],[place] [address] 05/31/2022 13:16:22 05/31/2022 14:19:35 Hypothyroidism 76536209 E03.8 [id number] MD CHARLA Edwards MD [address] [place] [address],[place] [address] 07/17/2022 10:10:22 07/17/2022 12:08:03 Hypothyroidism 12982031 E03.8 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 [id number] MD CHARLA Edwards MD [address] [place] [address],[place] [address] 03/13/2023 09:15:56 03/13/2023 11:05:09 Specialized medical examination 60623512 Z01.419 Screening for malignant neoplasm of rectum 814665886 Z12.12 Screening mammography 24 639139 Z12.31 Autoimmune hypothyroidism 029513743 E03.8 [id number] MD CHARLA Edwards MD [address] [place] [address],[place] [address] 05/05/2024 08:45:29 05/07/2024 15:50:27 Specialized medical examination 05668323 Z01.419 Screening for malignant neoplasm of rectum 163813742 Z12.12 Screening mammography 24 635124 Z12.31 Health Concerns Section Related Observation LastModified by Organization Detai ls LastModified Time None Recorded Concern Status LastModified by Organization Details LastModified Time None Recorded Advance Directives Directive None Recorded Payers Insurance Date Sequence Insurance Name Policy Number Policy Talavera Covered Member ID Talavera Member ID Guarantor Name 03/05/2022 1 [facility] (HMO) Hayley Kenisha [id number] Hayley Kenisha 03/05/2022 1 [facility] (O) [id number] Hayley Kenisha [id number] Hayley Kenisha 05/02/[address] [facility] (O) [id number] Hayley Kenisha [id number] Hayley Kenisha Notes Date Note Type Note Provider Name and Address Organization Details Recorded Time 03/26/2022 text/html This visit is a phone telehealth visit. The patient consented to the visit by phone. The patient was at home at the time of the call and the provider and patient were the only people on the line. I was at [address] [place] [address], at the time of the call. She had recent thyroid testing that showed her FT4 was elevated at 1.97, TSH is 1.21. She is taking 137 mcg a day, has been for years. She did lose 40 pounds of weight though in the past year. Charla Murrell MD [address] [place] [address], [phone], [place] [facility], 03/26/2022 15:20:00 05/31/2022 text/html This visit is a phone telehealth visit. The patient consented to the visit by phone. The patient was at home at the time of the call and the provider and patient were the only people on the line. I was at [address] [place] [address], [address], at the time of the call. She had a recent TSH and FT4 that showed her FT4 is high, even though we had dropped her dose from 137 to 125 mcg in 03/20. Her Ft4 is 1.87, on 125 mcg a day, and it had been 1.97 on the 137 mcg. Normal range is up to 1.80. Charla Murrell MD [address] [place] [address],[facility] [address], [place], [address], [facility], 05/31/2022 14:10:58 07/17/2022 text/html This visit is a phone telehealth visit. The patient consented to the visit by phone. The patient was at home at the time of the call and the provider and patient were the only people on the line. I was at [address] [place] [address], [place] [address], [place], [place], at the time of the call. She was hyperthyroid in 06/21 with a FT4 that was elevated, we dropped her dose of thyroid hormone down and recent testing showed the FT4 and TSH now in normal range. She feels well on this dose. We also did an antithyroid antibody test and it is elevated, she has an autoimmune component to her hypothyroidism. Charla Murrell MD [address] [place] [address],[facility] [address], [place], [address], [facility], 07/17/2022 10:34:54 03/13/2023 text/html She is here for annual, doing well on the lo loestrin. TSH 07/19 was 3.09, FT4 was 1.41, antithyroid antibody high at 7.0, top normal range 4.1. She was started on the lo loestrin as she has borderline hypertension issues already, but her insurance does not cover it and it is costing $100 a month, she would like to try a 20 mcg pill which would be free. Telehealth 06/21: She had a recent TSH and FT4 that showed her FT4 is high, even though we had dropped her dose from 137 to 125 mcg in 03/20.Her Ft4 is 1.87, on 125 mcg a day, and it had been 1.97 on the 137 mcg. Normal range is up to 1.80.She is going through a difficult divorce and has lost 50 pounds in the past year, she believes due to stress and not eating.She has no symptoms of hyperthyroidism, she denies diarrhea, insomnia, tremor, palpitations, etc.We disucssed al lthis nad decided to drop down to 1000 mcg a day, it may be that she has less needs now that she weighs less. We also disucssed tle small possibility that she has developed hyperthroidism, and if she develops symptoms then she is advised ot call me and we may take her off meds or drop even mroe significantly.chekc TSH, FT4 nad antitrhyroid antibodies in 4 weeks.She has hypothyroidism.We discussed the symptoms of underactive thyroid, including fatigue, weight gain, constipation, difficulty concentrating, and feeling cold, and we also discussed the symptoms of over replacement of thyroid hormone, including the warning signs of heart palpitations or rapid heart beat, diarrhea, jitteriness, and diarrhea.We discussed how to take the medication first thing in the morning, on an empty stomach, and have no food for an hour. telehealth 03/20: She had recent thyroid testing that showed her FT4 was elevated at 1.97, TSH is 1.21. She is taking 137 mcg a day, has been for years. She did lose 40 pounds of weight though in the past year.We discussed that she has too much thyroid hormone replacement, and we are going to drop her down to 125 mcg, and retest in 4 weeks. She understands and agrees. Possible complications from having too high a thyroid hormone level discussed, she is aware. __ Note from 03/20: She is here for annual exam, she requests STI testing as her cheated on her and now they are getting a divorce. Charla Murrell MD [address] [facility],[address], [place], [address], [place] [facility], 03/13/2023 09:51:32 05/05/2024 text/html She is here for annual, doing well on the OCP, and her BP is under control. Her divorce is finalized, she is happy about that. Her 11-year-old daughter is doing better. Note from 2022: She is here for annual, doing well on the lo loestrin. TSH 07/19 was 3.09, FT4 was 1.41, antithyroid antibody high at 7.0, top normal range 4.1.She was started on the lo loestrin as she has borderline hypertension issues already, but her insurance does not cover it and it is costing $100 a month, she would like to try a 20 mcg pill which would be free. Charla Murrell MD [address] [facility],[address], [place], [address], [place] [facility], 05/05/2024 09:16:24 OBGyn Episode No OBEpisode recorded.
--- OUTSIDE RECORDS SUMMARY | 2025-04-14 12:03 | XMS_ITS | Continuity of Care Document ---
Author Organization Formerly [facility] Address [address] [facility] [address] [place] [address] Insurance Providers Payer Plan Claims Address Claims Phone Policy Number Group Number Relation Employer Guarantor Name Guarantor Guarantor Address Guarantor Phone [facility] tel:[phone] [id number] De 1975 [address] [place] [address] [facility] [address] [address] tel: [phone] [id number] [phone] Self Hayley De 1975 [address] [place] [address] [facility] tel:[phone] [id number] Self Hayley De 1975 [address] [place], [place] [id number] Problems Unknown Problems Results Test Result Date/Time Value / Unit Interp. Refere [facility] Range Lipid Panel[[id number]] Collected: 07/30/2024 02:22 PM Specimen Received: 07/30/2024 05:00 AM Source: [facility] Cholesterol, Total [[id number]] 07/31/2024 04:09 AM 196 mg/dL 100-199 mg/dL Triglycerides [[id number]] 07/31/2024 04:14 AM 117 mg/dL 0-149 mg/dL HDL Cholesterol [[id number]] 07/31/2024 04:14 AM 54 mg/dL >39 mg/dL VLDL Cholesterol Derrell [[id number]] 07/31/2024 04:14 AM 21 mg/dL 5-40 mg/dL LDL Chol Calc ([facility]) [[id number]] 07/31/2024 04:14 AM 121 mg/dL H 0-99 mg/dL Hemoglobin A1c[[id number]] Collected: 07/30/2024 02:22 PM Specimen Received: 07/30/2024 05:00 AM Source: [facility] Hemoglobin A1c [[id number]] 07/31/2024 02:48 AM 5.8 % H 4.8-5.6 % . Prediabetes: 5.7 - 6.4 Karma betes: >6.4 Glycemic control for adults with diabetes: 7.0 Allergies, adverse reactions, alerts No known allergies and adverse reactions Medications No administered medications reported Vital Signs No vital signs reported Social History No smoking Hx information available
== END 2025-04-14 10:31 | disposition home or self-care (01) ==
LOC: HO.HMCFM 09:58
PROVIDERS: PCP Physician Assistant; Visit Provider Physician Assistant
DX: Z00.00 Encounter for general adult medical examination without abnormal findings (principal); E06.3 Autoimmune thyroiditis; R73.03 Prediabetes

== ENCOUNTER 2025-04-14 09:57 | Outpatient (REF) | payer OTHER, SELFPAY ==
--- OUTSIDE RECORDS SUMMARY | 2025-04-14 13:21 | XMS_ITS | Data Portability ---
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 Plan of Treatment Reminders Order Date Submit Date Provider Last Modified By Organization Details Last Modified Time Details Appointments None recorded. Lab cytology report, thin prep, smear or scraping, cervical or vaginal 2024 025 PADMINI [facility] (Centralized Electronic Ordering - All Locations), Patient Can Go To The Location Of Their Choice, [id number] 5 18:16:34 hemoglobin , gastrointe stinal, stool 2024 025 [email or web address] 1 In-Office Order, Internal Use Only DO Not Attach Compendium DO Not Attach Compendium, Do Not Delete/merge, [id number] 5 09:15:43 pap test, thinprep, cervical 2022 023 [facility] (Centralized Electronic Ordering - All Locations), Patient Can Go To The Location Of Their Choice, [id number] 3 07:27:07 TSH + free T4, serum 2022 023 [email or web address] [facility] (Centralized Electronic Ordering - All Locations), Patient Can Go To The Location Of Their Choice, [id number] 3 07:43:37 fecal occult blood, stool 2022 023 [email or web address] 1 In-Office Order, Internal Use Only DO Not Attach Compendium DO Not Attach Compendium, Do Not Delete/merge, [id number] 3 09:50:59 TSH + free T4, serum 2022 023 [facility] - All Locations), Patient Can Go To The Location Of Their Choice, [id number] 3 07:13:24 thyroglobu anita Ab, serum 2022 023 [facility] ([facility] Ordering - All Locations), Patient Can Go To The Location Of Their Choice, [id number] 3 07:13:24 TSH + free T4, serum 2021 022 [facility] (Centralized Electronic Ordering - All Locations), Patient Can Go To The Location Of Their Choice, [id number] 3 07:49:07 Referral None recorded. Procedures None recorded. Surgeries None recorded. Imaging MAMMO, screening, digital, bilateral - Breast Aspiration and/or Biopsy if needed 2024 025 [facility] Orders, [address], [place], [address], 5 17:03:03 MAMMO, screening, digital, bilateral - Breast Aspiration and/or Biopsy if needed 2022 023 [facility] Orders, [address], [address], [place], [address], 4 16:47:31 Medication Orders Blisovi Fe 1/20 (28) 1 mg-20 mcg (21)/75 mg (7) tablet 2024 025 [facility]/Pharmacy #[id number], [address] [place], [address], 5 09:15:44 Blisovi Fe 1/20 (28) 1 mg-20 mcg (21)/75 mg (7) tablet 2022 023 [facility]/Pharmacy #[id number], [address] [place], [address], 3 09:47:29 levothyrox ine 100 mcg tablet 2022 023 tmeczywor [facility]/Pharmacy #[id number], [address] [place], [address], 5 08:48:39 levothyrox ine 125 mcg tablet 2021 022 [facility]/Pharmacy #[id number], [address] [place], [address], 09:18:55 Patient TargetsNo targets recorded. Patient Instructions Encounter Date Encounter Id Patient Instructions Last Modified By Organization Details Last Modified Time 03/26/2022 [id number] hypothyroidism: care instructions Not available 03/26/2022 15:12:20 This visit is a phone telehealth visit. The patient consented to the visit by phone. The patient was at home at the time of the call and the provider and patient were the only people on the line. I was at [address] [facility], [address], [place], [place], at the time of the call. [...] 20 minutes Not available 03/26/2022 15:16:44 05/31/2022 [id number] hypothyroidism: care instructions Not available 05/31/2022 13:29:55 This visit is a phone telehealth visit. The patient consented to the visit by phone. The patient was at home at the time of the call and the provider and patient were the only people on the line. I was at [address] [facility], [address], [place], [place], at the time of the call. [...] off meds or drop even mroe significantly. [facility] T[facility], FT4 nad antitrhyroid antibodies in 4 [...] 30 minutes Not available 05/31/2022 13:37:59 07/17/2022 [id number] hypothyroidism: care instructions Not available 07/17/2022 10:22:25 This visit is a phone telehealth visit. The patient consented to the visit by phone. The patient was at home at the time of the call and the provider and patient were the only people on the line. I was at [address] , [address], [place], [place], at the time of the call. [...] 20 minutes Not available 07/17/2022 10:24:14 03/13/2023 [id number] learning about healthy weight Not available 03/13/2023 [...] to pharmacy. Not available 03/13/2023 09:51:07 05/05/2024 [id number] learning about healthy weight Not available 05/05/2024 [...] Go To The Location Of Their Choice, [id number] 03/09/2022 13:52:29 03/08/20 22 03/09/2022 THIN PREP [...] Disea se Contr ol and Preve ntion ([facility]) recom mends confi rmato ry retes ting using cultu re or a diffe rent nucle ic acid ampli ficat ion test when posit roxy resul ts occur , if indic ated. 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 PAP TEST, CERVI YEMI: Final Diagn osis: [...] pineda or mani wren Perfo rmed at [facility] ate Refer ence Labor atory [facility] t[facility] Cytol ogy, [address] [place] Clini yemi Histo ry (othe r): Z01.4 19, Z11.3 , LPS negat roxy, takes no perio d pills , routi ne scree n Phone #: [phone], On-Ca ll Patho logis t: [id number] Not Available [facility] (Centralized Electronic Ordering - All Locations) Patient Can Go To The Location Of Their Choice, 03/14/2022 14:50:42 03/08/20 22 03/08/2022 fecal occul t blood , stool Occult Blood negati ve Not Available In-Office Order Internal Use Only DO Not Attach Compendium DO Not Attach Compendium, Do Not Delete/merge, [id number] 03/08/2022 09:39:08 05/30/19 23 05/30/2022 TSH WITH [...] Go To The Location Of Their Choice, [id number] 07/11/2022 15:15:58 07/12/19 23 07/12/2022 ANTIT HYROG [...] Go To The Location Of Their Choice, [id number] 07/12/2022 14:30:32 03/13/20 23 03/13/2023 FREE T4 free T4 1.50 NG/dL (0.70- 1.80) Not Available [facility] (Centralized Electronic Ordering - All Locations) Patient Can Go To The Location Of Their Choice, [id number] 03/13/2023 21:04:35 03/13/20 23 03/13/2023 TSH TSH 3.19 uIU/m L (0.4-4 .2) Not Available [facility] (Centralized Electronic Ordering - All Locations) Patient Can Go To The Location Of Their Choice, [id number] 03/13/2023 21:04:36 03/13/20 23 03/13/2023 [facility] CYTOL OGY results Patijasen nt Name: DEE DEE RUBY tasneem : 1975 (Age: 47) Lab Acces valentín #: [id number] Colle ction Date: 03/13 Acces valentín Date: 03/13 Sign Out Date: 03/19 Tissu e Sourc e: 1: THINP REP 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 PAP TEST, CERVI YEMI: Final Diagn osis: [...] pineda or mani wren Perfo rmed at [facility] ate Refer ence Labor atory depar t[facility] Cytol ogy, [address] [place] Clini yemi Histo ry (othe r): Z01.4 19, ROUTI NE SCREE N, LPS 03/08 NEG Phone #: [phone], On-Ca Patho logis t: [id number] Not Available [facility] (Centralized Electronic Ordering - All Locations) Patient Can Go To The Location Of Their Choice, [id number] 03/19/2023 11:33:30 03/13/20 23 03/13/2023 fecal occul t blood , stool Occult Blood negati ve Not Available In-Office Order Internal Use Only DO Not Attach Compendium DO Not Attach Compendium, Do Not Delete/merge, [id number] 03/13/2023 09:17:30 05/05/19 25 05/08/2024 IGP, RFX APTIM A HPV ASCU diagnosis: Commen t NEGAT ROXY FOR INTRA EPITH ELIAL LESIO N OR RACHEL WILKS . Not Available [facility] ([facility]) [address] [facility], [place], [address], 05/08/2024 18:16:34 05/05/19 25 05/08/2024 IGP, RFX APTIM A HPV ASCU specimen adequacy: Commen t Satis facto ry for evalu ation . No endoc ervic al compo nent is ident ified . Not Available [facility] ([facility]) [address] [facility], [place], [address], 05/08/2024 18:16:34 05/05/19 25 05/08/2024 IGP, RFX APTIM A HPV ASCU clinician provided ICD10: Commen t Z01.4 19 Not Available [facility] ([facility]) [address] [place], [address], 05/08/2024 18:16:34 05/05/19 25 05/08/2024 IGP, RFX APTIM A HPV ASCU performed by: Jane Lara , Sukh long (ASCP ) Not Available [facility] ([facility]) [address] [place], [address], 05/08/2024 18:16:34 05/05/19 25 05/08/2024 IGP, RFX APTIM A HPV ASCU . . Not Available [facility] ([facility]) [address] [facility], [place], [address], 05/08/2024 18:16:34 05/05/19 25 05/08/2024 IGP, RFX [...] ts do occur . Not Available [facility] ([facility]) [address] [place], [address], 05/08/2024 18:16:34 05/05/19 25 05/08/2024 IGP, RFX APTIM A HPV ASCU test methodology: Jane long This liqui d based ThinP rep(R ) pap test was scree aleisha with the use of an image guide eleazar pérez. Not Available [facility] ([facility]) [address] [place], [address], 05/08/2024 18:16:34 05/05/19 25 05/08/2024 IGP, RFX APTIM A HPV ASCU . Commen t The HPV DNA refle x crite christopher were not met with this speci men resul t there fore, no HPV testi ng was perfo rmed. Not Available [facility] ([facility]) [address] [facility], [place], [address], 05/08/2024 18:16:34 05/05/19 25 05/05/2024 hemog lobin , gastr ointe marianne l, stool Occult Blood negati ve Not Available In-Office Order Internal Use Only DO Not Attach Compendium DO Not Attach Compendium, Do Not Delete/merge, [id number] 05/05/2024 08:52:43 02/02/20 23 02/01/2023 MAMMO , scree britney, digit al, bilat eral No observ ation record ed. [address] Breast [facility] [address] [place], [address], 02/01/2023 14:35:38 02/27/20 24 02/27/2024 MAMMO , scree britney, digit al, bilat eral No observ ation record ed. [address] [facility] [place], [address], 02/28/2024 08:07:14 03/08/20 25 03/08/2025 MAMMO , scree britney, digit al, bilat eral No observ ation record ed. [address] Breast [facility] [address] [facility] [place], [address], 03/09/2025 07:37:00 Result Notes None recorded. Problems Name Problem SNOMED Code Status Onset Date Resolution Date Notes Provider Name and Address Organization Details Recorded Time Hypertens roxy disorder 48867596 Active 2013 developed gestationa l hypertensi on in 2013 and it never resolved Not Available [facility] 3 16:31:06 Morbid obesity 413739757 Active 2014 Not Available [facility] 3 16:31:06 Metabolic syndrome X 993194898 Active 2015 PCP began Metformin 11/2015 as FBS was 113 and 2 hour glucose tolerance was 156. 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 Procedures Surgical History Date Name Laterality Status Provider Name and Address Organization Details Recorded Time 4 Most Recent Mammogram completed Tata Ibrahim in [facility], 04/23/2024 14:37:15 4 Other completed Tata Ibrahim in [facility], 11/22/2015 14:31:38 Imaging Results None recorded. Procedure Notes None recorded. Medical Equipment None Reported. Allergies Allergen ID Allergen Name Allergen Category Reaction Reaction Severity Criticality Documentation Date Start Date Code Code System Note Provider Name and Address Organization Details Recorded Time 78658 metformin medicatio n hives Not available Not available 05/05/2024 6809 RxNorm GUILLERMO Pierce in [facility], 5 08:50:13 Medications Name Sig Start [...] Available Not Available Not Avai lable Afluria 6927-1385 (PF) 45 mcg(15 mcg x 3)/0.5 mL [...] and Address Organization Details Last Updated DateTime 046418. 44 g 46.9 kg/m2 162.56 cm 97.2 [degF] 93 /min 140/79 mm[Hg] Tata Ibrahim in [facility], 08:48:56 Date Recorded Body height Provider Name an d Address Organization Details Last Updated DateTime 05/31/2022 162.56 cm Liz Tucker es in [facility], 05/31/2022 13:21:02 Date Recorded Body height Provider Name an d Address Organization Details Last Updated DateTime 07/17/2022 162.56 cm Tata Tucker es in [facility], 07/17/2022 10:11:56 Date Recorded Body height Body mass index (BMI) Body weight Heart rate Systolic And Diastolic Provider Name and Address Organization Details Last Updated DateTime 03/13/2023 162.56 cm 43.3 kg/m2 948474.2 8 g 75 /min 135/66 mm[Hg] Liz Ibrahim in [facility], 03/13/2023 09:22:58 Date Recorded Body height Provider Name an d Address Organization Details Last Updated DateTime 03/26/2022 162.56 cm Tata Tucker es in [facility], 03/26/2022 14:58:06 Social History Question Answer Notes LastModified by Organizat ion Details LastModified Time Tobacco Smoking Status Never Smoker Tata GUILLERMO Jay in [facility], 10/27/2015 08:09:08 How Many Years Have [...] Or The Highest Degree You Have Received? 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 Never used electronic cigarettes Information not available 12/04/2018 What is your exercise level? Occasional Information not available 12/14/2016 Mental Status Question Answer Note LastModified by Organization D etails LastModified Time Do you feel stressed (tense, restless, nervous, or anxious, or unable to sleep at night)? [id number] Information not available 05/05/2024 Family History Relationship [...] Tata garrison [place] [facility], 02/18/2023 07:50:01 Past Encounters Encounter ID Performer Location Encounter Start Date Encounter Closed Date Diagnosis/Indication Diagnosis SNOMED-CT Code Diagnosis ICD10 Code Diagnosis IMO Codes Diagnosis Note [id number] MD CHARLA Edwards MD [address] [place] [address],[place] [address] [place] [address] 11/22/2015 14:11:04 11/22/2015 15:40:01 Specialized medical examination 84184296 Z01.419 Venereal d isease screening 714085854 Z11.3 Abnormal weight gain 161 050740 R63.5 Morbid obesity 191557542 E66.01 Hypertensive disorder 38 414757 I10 [id number] MD CHARLA Edwards MD [address] [place] [address], [place] [address] 11/30/2015 08:19:07 11/30/2015 10:49:03 Hypothyroidism 77875091 E03.8 Cary thyroiditis 21 844612 E06.3 [id number] MD CHARLA Edwards MD [address] [place] [address], [address] [address] 12/28/2015 10:55:39 12/28/2015 11:55:08 Hypothyroidism 75927345 E03.8 [id number] MD CHARLA Edwards MD [address] [place] [address], [address] [place] [address] 12/14/2016 10:53:17 12/14/2016 11:59:18 Specialized medical examination 09917006 Z01.419 Venereal d isease screening 282695671 Z11.3 Hypothyroidism 31453663 E03.8 [id number] MD CHARLA Edwards MD [address] [place] [address], [place] [address] 02/22/2017 08:18:02 02/22/2017 10:08:20 Hypothyroidism 47872316 E03.8 Metabolic syndrome X 237 612180 E88.81 [id number] CharlaMD CHARLA Zamora MD [address] [place] [address] [place] [address] 03/25/2017 07:52:10 03/25/2017 10:31:46 Hypothyroidism 53923685 E03.8 Morbid obesity 409576011 E66.01 [id number] MD CHARLA Edwards MD [address] [place] [address] [place] [facility] [address] 12/17/2017 10:37:45 12/17/2017 13:10:21 Specialized medical examination 01820015 Z01.419 Screening for malignant neoplasm of rectum 441819803 Z12.12 Screening mammography 24 918427 Z12.31 Hypothyroidism 47540928 E03.8 Morbid obesity 887135240 E66.01 Metabolic syndrome X 237 437389 E88.81 [id number] MD CHARLA Edwards MD [address] [place] [address] [place] [address] 12/04/2018 09:11:51 12/04/2018 11:51:40 Hypothyroidism 69748664 E03.8 Specialize d medical examination 57801082 Z01.419 Screening for malignant neoplasm of rectum 062257805 Z12.12 Screening mammography 24 583300 Z12.31 Candidiasis of skin 4988 3006 B37.2 Candidal vulvovaginitis 69523217 B37.3 [id number] MD CHARLA Edwards MD [address] [place] [address] [place] [address] 02/12/2020 09:16:03 02/12/2020 09:56:02 Specialized medical examination 63016737 Z01.419 Screening for malignant neoplasm of rectum 709230173 Z12.12 Screening mammography 24 439613 Z12.31 Hypothyroidism 30680314 E03.8 [id number] MD CAHRLA Edwards MD [address] [place], [place] [address] [address] 02/28/2021 09:19:01 02/28/2021 10:48:30 Specialized medical examination 27824966 Z01.419 Screening for malignant neoplasm of rectum 859269954 Z12.12 Screening mammography 24 189667 Z12.31 Hypothyroidism 39731967 E03.8 [id number] MD CHARLA Edwards MD [address] [place] [address],[place] [address] 03/08/2022 09:38:08 03/08/2022 13:21:29 Specialized medical examination 46111714 Z01.419 Screening for malignant neoplasm of rectum 104533083 Z12.12 Screening mammography 24 018336 Z12.31 Hypothyroidism 65570245 E03.8 Venereal d isease screening 532083657 Z11.3 [id number] MD CHARLA Edwards MD [address] [place] [address],[place] [address] 03/26/2022 14:52:45 03/26/2022 15:34:45 Hypothyroidism 97430979 E03.8 [id number] MD CHARLA Edwards MD [address] [place] [address],[place] [address] 05/31/2022 13:16:22 05/31/2022 14:19:35 Hypothyroidism 89221025 E03.8 [id number] MD CHARLA Edwards MD [address] [place] [address],[place] [address] 07/17/2022 10:10:22 07/17/2022 12:08:03 Hypothyroidism 85299933 E03.8 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 [id number] MD CHARLA Edwards MD [address] [place] [address],[place] [address] 03/13/2023 09:15:56 03/13/2023 11:05:09 Specialized medical examination 17484180 Z01.419 Screening for malignant neoplasm of rectum 599317844 Z12.12 Screening mammography 24 922134 Z12.31 Autoimmune hypothyroidism 720919836 E03.8 [id number] MD CHARLA Edwards MD [address] [place] [address],[place] [address] 05/05/2024 08:45:29 05/07/2024 15:50:27 Specialized medical examination 42328521 Z01.419 Screening for malignant neoplasm of rectum 753771821 Z12.12 Screening mammography 24 020480 Z12.31 Health Concerns Section Related Observation LastModified by Organization Detai ls LastModified Time None Recorded Concern Status LastModified by Organization Details LastModified Time None Recorded Advance Directives Directive None Recorded Payers Insurance Date Sequence Insurance Name Policy Number Policy Talavera Covered Member ID Talavera Member ID Guarantor Name 03/05/2022 1 [facility] (HMO) Hayley Kenisha [id number] Hayley Kenisha 03/05/[address] [facility] (O) [id number] Hayley Kenisha [id number] Hayley Kenisha 05/02/2024 1 [facility] (O) [id number] Hayley Kenisha [id number] Hayley Kenisha Notes Date Note Type Note Provider Name and Address Organization Details Recorded Time 03/26/2022 text/html This visit is a phone telehealth visit. The patient consented to the visit by phone. The patient was at home at the time of the call and the provider and patient were the only people on the line. I was at [address] [place] [address], at the time of the call. She had recent thyroid testing that showed her FT4 was elevated at 1.97, TSH is 1.21. She is taking 137 mcg a day, has been for years. She did lose 40 pounds of weight though in the past year. Charla Murrell MD [address] [place] [address], [address], [place] [facility], 03/26/2022 15:20:00 05/31/2022 text/html This visit is a phone telehealth visit. The patient consented to the visit by phone. The patient was at home at the time of the call and the provider and patient were the only people on the line. I was at [address] [place] [address], [address], at the time of the call. She had a recent TSH and FT4 that showed her FT4 is high, even though we had dropped her dose from 137 to 125 mcg in 03/20. Her Ft4 is 1.87, on 125 mcg a day, and it had been 1.97 on the 137 mcg. Normal range is up to 1.80. Charla Murrell MD [address] [place] [address],[facility] [address], [place], [address], [facility] [place] in [facility], 05/31/2022 14:10:58 07/17/2022 text/html This visit is a phone telehealth visit. The patient consented to the visit by phone. The patient was at home at the time of the call and the provider and patient were the only people on the line. I was at [address] [place] [address], [place] [address], [place], [place], at the time of the call. [...] component to her hypothyroidism. Charla Murrell MD [address] [place] [address],[facility] [address], [place], [address], [facility] [place] in [facility], 07/17/2022 10:34:54 03/13/2023 text/html She is [...] getting a divorce. Charla Murrell MD [address] [facility],[address], [place], [address], [place] [facility], [...] would be free. Charla Murrell MD [address] [facility],[address], [place], [address], [place] [facility], 05/05/2024 09:16:24 OBGyn Episode No OBEpisode recorded.
[2025-04-14 15:30] LABS: MANUAL DIFF FLAG NO
[2025-04-14 15:34] LABS: Hematocrit 41.5 % (37.0-47.0); Hemoglobin 13.4 g/dl (12.0-16.0); Imm Gran Abs Auto 0.02 X10*3/uL (0.00-0.03); Imm Gran Pct Auto 0.4 % (0.0-0.4); Lymphocytes Absolute Auto 2.3 X10*3/uL (1.2-4.9); Mean Corpuscular HGB Conc 32.3 g/dl (31.0-35.0); Mean Corpuscular Hemoglobin 27.6 pg (27.0-33.0); Mean Corpuscular Volume 85.6 fL (80.0-98.0); NRBC Abs Auto 0.000 X10*3/uL (0.0-0.012); NRBC Pct Auto 0.0 /100WBC (0.0-0.2); Platelet Count 194 X10*3/uL (160-400); Red Blood Count 4.85 X10*6/uL (4.20-5.50); White Blood Count 5.7 X10*3/uL (4.8-10.8)
[2025-04-14 15:43] LABS: Appearance Urine Turbid; Glucose Urine UA Negative (Negative); PH 6.0 (5.0-9.0); Specific Gravity - Urine 1.025 (1.005-1.025)
[2025-04-14 15:58] LABS: Alanine Aminotransferase 50 U/L (0-31); Albumin Level 4.3 g/dL (3.5-5.0); Alkaline Phosphatase 100 U/L (39-117); Anion Gap 12 (12-20); Aspartate Amino Transferase 33 U/L (5-31); Blood Urea Nitrogen 13 mg/dL (9-16); Calcium 9.7 mg/dL (8.4-10.2); Carbon Dioxide 25 mmol/L (22-29); Chloride 106 mmol/L (96-108); Cholesterol 182 mg/dL (<200); Estimated Glomerular Filt Rate > 60; HDL Cholesterol 52 mg/dL (>40); Potassium 4.3 mmol/L (3.3-5.1); Sodium 139 mmol/L (135-145); Total Protein 6.9 g/dL (6.5-8.0); Triglycerides 120 mg/dL (<150)
[2025-04-14 16:45] LABS: Microalbum/Creatinine Ratio Ur 6.2 ug/mg cr (<30)
== END 2025-04-14 09:58 | disposition home or self-care (01) ==
LOC: HO.WFDLDS 09:57
PROVIDERS: PCP Physician Assistant; Visit Provider Physician Assistant
DX: Z00.00 Encounter for general adult medical examination without abnormal findings (principal); R73.03 Prediabetes; E06.3 Autoimmune thyroiditis; R73.01 Impaired fasting glucose; R30.0 Dysuria
CPT/HCPCS: 36415; 80053; 80061; 81003; 82043; 82570; 83036; 84443; 85025